=== PATIENT | male | born 1955 | race Caucasian/White ===

== ENCOUNTER → 2018-11-18 | Outpatient (CLI) | payer OTHER ==
--- NOTE | 2018-11-20 14:11 | SLEEP ---
DATE OF STUDY: OBJECTIVE: The patient is a 63-year-old male with an [place] sleep score of 18, who is having a home polysomnogram. Height 69 inches, weight 250 pounds, body mass index 36.9. INTERPRETATION: The apnea-hypopnea index is 13.5 events per hour with a total of 114 events. The minimum oxygen saturation is 70%. The vast majority of the events are obstructive. Mean heart rate of 74.4 beats per minute during sleep. 42.5% of the record shows the patient is snoring. IMPRESSION: Abnormal polysomnogram, home study, showing obstructive sleep apnea and hypopnea. RECOMMENDATIONS: 1. The patient should return to the in-house lab for a CPAP titration study or alternatively could be started on variable CPAP. 2. He should pursue weight loss and avoid sedatives and alcohol. NISHI TIDWELL MD DR: RICK/yeny JOB#: [id number] / [id number] MAURY Story MD, AMAN MD
== END | disposition home or self-care (01) ==
LOC: RT 10:18
PROVIDERS: ATTEND Internal Medicine Critical Care Medicine
DX: G47.33 Obstructive sleep apnea (adult) (pediatric) (principal)
CPT/HCPCS: G0399

== ENCOUNTER → 2019-01-14 | Outpatient (CLI) | payer OTHER ==
--- NOTE | 2019-01-16 11:14 | SLEEP ---
DATE OF STUDY: 01/14/2019 ATTENDING PHYSICIAN: Maury Key MD The patient is a 63-year-old, who weighs 250 pounds with a BMI of 36. The patient's [place] score was 5. The patient had a home sleep study and was found to have LUCI at an AHI of 13.5 per hour with hypoxia. The patient was referred back for in-lab CPAP titration study. 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 When the patient arrived, he had a few mixed alcoholic drinks along with tizanidine and 1 tablet Xanax. The patient was sleepy, but was able to answer questions. He drinks on a nightly basis, 3-5 drinks per night with tizanidine and Xanax. During the night study, the patient spent 409 minutes in bed and slept for 314 minutes with a low sleep efficiency of 77%. Sleep latency was 2 minutes with an absent REM sleep. Overall, sleep architecture showed normal stage 1 sleep, increased stage 2 sleep, absent slow wave and absent REM sleep. EKG monitoring revealed a mean heart rate of 53 beats per minute. No sustained arrhythmias observed. No PLMS seen. The patient was started on CPAP at a pressure of 7 cm water as he was unable to use less than that and titrated to a final pressure of 9 cm water. At the final pressure, the patient slept for 246 minutes. The patient had supine sleep, but no REM sleep. The patient's AHI was reduced to 3 per hour and oxygen saturation remained above 89%. The patient used full face mask. Towards the end of the study, the patient became more responsive and was fully awake. IMPRESSION: 1. Sleep apnea diagnosed by home sleep study. 2. No clinically significant periodic limb movements. 3. Chronic alcoholism. The patient drinks 3-5 drinks per night along with Xanax and tizanidine. He needs to be counseled regarding alcohol cessation. Pt drank prior to arrival to sleep lab. RECOMMENDATIONS: 1. CPAP at 9 cm water completely eliminated the patient's sleep apnea and should be used on a nightly basis. 2. Followup in 4-6 weeks to assess compliance with CPAP and to document clinical improvement. 3. Weight loss is strongly advised. 4. Avoid TELEVISION CABLE INSTALLER depressants. The patient needs to be counseled regarding mixing alcoholic drinks on a nightly basis along with Xanax and tizanidine. 5. Caution regarding driving until his hypersomnia is resolved and symptoms have improved. MIRI NOLASCO MD DR: DOMENICO/yeny JOB#: [id number] / [id number] MAURY Story MDD
== END | disposition home or self-care (01) ==
LOC: RT 19:47
PROVIDERS: ATTEND Internal Medicine Critical Care Medicine
DX: G47.33 Obstructive sleep apnea (adult) (pediatric) (principal)
CPT/HCPCS: 95811

== ENCOUNTER → 2019-10-02 | Outpatient (CLI) | payer MEDICARE ==
[~2019-10-02] MED LIST: ALPR0.5T6 PO; ASPI-630 PO; GABA600T7 PO; IOHEXOL 180 MG/ML 10 ML VIAL. ONE; LISI2.5T PO; METO25TA4 PO; methylPREDNISolone ACETATE 40 MG/ML VIAL. ONE; methylPREDNISolone ACETATE 80 MG/ML VIAL. ONE
--- NOTE | 2019-10-02 12:08 | PAIN ---
DATE OF SERVICE: 10/02/2019 INITIAL CONSULTATION FOR PAIN CLINIC CHIEF COMPLAINT: Low back and bilateral lower extremity pain. HISTORY OF PRESENT ILLNESS: This is a 64-year-old male who presents with history of pain in the low back, bilateral lower extremities for many years; about 10 years plus. The patient reports it is gradually increasing, not a result of any specific injury or action he is aware of, but over the past 1-2 years, the pain has been getting much worse, especially with walking and standing, changing positions, getting up from a seated position and also with sitting for prolonged periods causes some pain in the back itself, but also into the lower extremities, posterior gluteus, posterior thighs into the posterior knees, essentially right equal to left. This is worse with walking, better with sitting or lying down, does not awaken him from sleep generally, and when he is lying down the pain is almost gone. The patient reports no bowel or bladder affect or control loss or incontinence does affect his ability to walk; however, fairly significantly. The patient does not use any assistive devices, although does use a shopping cart when he is at the grocery store to lean on fairly significantly. The patient reports at that time he has done shopping; however, about 30-45 minutes he is using the cart fairly significantly to support his weight because of the pain. The patient reports the pain in the low back is sharp, stabbing, throbbing, shooting in the lower extremities, mostly in the posterior and lateral aspect of the thighs, some in the anterior aspect as well, but mostly in the posterior. The patient rates his disability from 0-10, 10 being the worst, 10 with family and home responsibilities, recreation, social activity and occupation, 5 with sexual behavior, self-care and 1 with life support activities. The patient did have an MRI scan just a few days ago dated 09/24/2019 of lumbar spine showing mild bone marrow edema, left pedicles at L4 and L5 secondary to the stress reaction, likely multilevel degenerative changes of lumbar spine without significant spinal canal or neural foraminal stenosis with mild facet arthropathy at L4-L5 and L5-S1 as well as L3-L4. The patient reports no loss of motor function with the lower extremities, but significant fatigability of both legs with ambulation. The patient reports he has had previous epidural injections in the past about 2018, most recently with good results. Also, has had radiofrequency ablation x 3 with only minimal decrease in pain after the last radiofrequency ablation in the lumbar spine. The patient also had some physical therapies in the past, does exercises on his own, which helps and pool therapy on his own as well with the [facility], which is currently closed, but is doing well before that. The patient is taking ibuprofen, which he reports does help significantly by almost 40-50%. PAST MEDICAL HISTORY: Significant for hypertension, arthritis, atrial fibrillation, nonalcoholic fatty liver change. PAST SURGICAL HISTORY: Previous surgeries include cataract extractions, hip replacement in 2017, appendectomy. CURRENT MEDICATIONS: Include daily baby aspirin, gabapentin, alprazolam, lisinopril, and metoprolol. ALLERGIES: THE PATIENT IS ALLERGIC TO NEOSPORIN. FAMILY HISTORY: Significant for no major medical problems or conditions he is aware of. SOCIAL HISTORY: The patient does not smoke. Drinks alcohol very rarely, maybe once a week at the most. Does not use any illegal, illicit or recreational drugs. Is single, lives locally in [place], [place]. Reports he is currently retired. REVIEW OF SYSTEMS: The patient's review of systems is positive for those items mentioned in history of present illness. All systems reviewed and otherwise negative. It is complete, full and well documented on the patient's chart. PHYSICAL EXAMINATION: VITAL SIGNS: The patient's blood pressure is 115/85, pulse 62, respirations 18, temperature 98.1 degrees Fahrenheit. Height is 5 feet 10 inches. Weight is 261 pounds. GENERAL: The patient is awake, alert, oriented, appropriate, very pleasant demeanor. HEENT: Head shows normocephalic, atraumatic. Extraocular movements are intact and symmetrical. Oral cavity shows mucous membranes are moist and pink. Dentition is intact. NECK: Shows anterior throat supple without palpable lymphadenopathy noted. Swallow reflex symmetrical. CHEST: Shows normal on inspection. Breath sounds are clear to auscultation bilaterally. HEART: Shows S1, S2 clear. No murmurs auscultated. ABDOMEN: Soft, nontender, nondistended. No palpable organomegaly is noted. No rebound or guarding demonstrated. BACK: Shows spine grossly in the midline, normal appearing cervical lordotic curvature, thoracic kyphotic curvature slightly increased and minor flattening of lumbar lordotic curvature. Lumbar paraspinous muscle shows symmetrical on inspection, on palpation shows some moderate tenderness diffusely bilaterally and diffusely in the low lumbar distribution without radiation. The patient has good rotational motion of lumbar spine with some minor tenderness with right and left lateral rotation, but only very minimal and some mild tenderness as well with extension of the lumbar spine and axial loading of the low back, but only minimal as well. Forward flexion reports no pain with full 45 degrees flexion anteriorly. EXTREMITIES: The patient's lower extremities showed deep tendon reflexes at 2+ in the patellar, 1+ tendo-calcaneus tendons. Motor exam is strong with 5/5 dorsiflexion, extension, quadriceps and hamstring flexion symmetrical. Peripheral pulses are 1+ posterior tibia. No peripheral edema is noted bilaterally. Straight leg raising noted to be negative for reproduction of radicular symptoms bilaterally as is Gaenslen's and Diego's maneuvers bilaterally. The patient is able to walk, stand on toes without difficulty or loss of balance with a normal appearing gait, does not appear to favor the right or left lower extremity for short distance in the office today, again not using any assistive devices. SKIN: The patient's skin shows warm and dry, good turgor. No edema. No sores, rashes or bruising throughout. IMPRESSION: 1. This is a 64-year-old male with a long history of low back pain, bilateral lower extremity pain of 10 plus years, worse over the past 1-2 years. 2. MRI scan of lumbar spine as noted. 3. Arthritis. 4. Hypertension. 5. Atrial fibrillation. PLAN: Options were discussed with the patient including conservative medical management, physical therapies, and interventional techniques. He would like to pursue interventional techniques. We discussed a lumbar epidural steroid injection using description as well as anatomical models to describe the procedure. Risks were then discussed including, but not limited to bleeding, infection, possibility of epidural hematoma, subsequent neurological compromise, dural puncture, headaches, spinal cord and/or nerve damage, side effects of steroid medication and poor results regarding pain control. The patient understands and wished to proceed. The patient will return to clinic in approximately 2 weeks for followup. He was counseled on his return appointment, activity level and side effects to be aware of. DIAGNOSES: Lumbar radiculopathy with lumbar degenerative disk disease and lumbar spondylosis. PROCEDURE: Lumbar epidural steroid injection with translaminar approach L4-L5 level using C-arm fluoroscopic guidance under sterile prep and ape using local anesthetic. MEDICATIONS INJECTED: A total of 120 mg Depo-Medrol plus 10 mL of preservative-free normal saline and 2 mL of contrast. CONDITION AT DISCHARGE: Stable. The patient tolerated the procedure well and had no complications. RUCHI LOYOLA MD DR: FRANCISCO/yeny JOB#: [id number] / [id number] Vitaliy Gross MD
== END ==
LOC: PNCL 10:10
PROVIDERS: ATTEND Anesthesiology
DX: M51.16 Intervertebral disc disorders with radiculopathy, lumbar region (principal); M47.816 Spondylosis without myelopathy or radiculopathy, lumbar region; I10 Essential (primary) hypertension; I48.91 Unspecified atrial fibrillation; Z87.39 Personal history of other diseases of the musculoskeletal system and connective tissue; Z98.42 Cataract extraction status, left eye; Z98.41 Cataract extraction status, right eye; Z96.60 Presence of unspecified orthopedic joint implant; Z88.8 Allergy status to other drugs, medicaments and biological substances; Z72.89 Other problems related to lifestyle; Z96.1 Presence of intraocular lens
CPT/HCPCS: 62323; J1030; J1040; Q9965

== ENCOUNTER → 2019-10-16 | Outpatient (CLI) | payer MEDICARE ==
--- NOTE | 2019-10-16 13:08 | PAIN ---
DATE OF SERVICE: 10/16/2019 PROGRESS NOTE FOR PAIN CLINIC DIAGNOSES: Lumbar radiculopathy with lumbar degenerative disk disease and lumbar spondylosis. HISTORY OF PRESENT ILLNESS: The patient is a 64-year-old male, who returns for followup status post lumbar epidural steroid injection x 1. The patient reports about 75% improvement overall in the low back and bilateral lower extremity pain that he is having. The patient reports being increasing in activity with greater ease and comfort, traveling with greater ease, walking greater distances and is very pleased with his progress. He states he has been able to stand for much longer periods of time. The patient reports he is sleeping well at night, does not awaken him from sleep, sleeping about 8 hours at a time. The patient reports still some pain in the low back into the bilateral hips, posterior gluteus, lateral thigh, anterior thigh, but only very mildly at this time. The patient reports it is a 6 on a scale of 10 at its worst over the past week, 3 on average, 1 at its least and is a 6 today. The patient reports it is worse with walking, standing, and changing positions, better again with lying down or sitting. PHYSICAL EXAMINATION: VITAL SIGNS: The patient's blood pressure 123/78, pulse 70, respirations 18, temperature 97.8 degrees Fahrenheit, height is 5 feet 10 inches and weight is 267 pounds. GENERAL: The patient is awake, alert, oriented, appropriate, very pleasant demeanor. HEENT: Shows normocephalic, atraumatic. Extraocular movements are intact and symmetrical. Oral cavity: Mucous membranes moist and pink. Dentition is intact. NECK: Shows anterior throat supple without palpable lymphadenopathy noted. Swallow reflex symmetrical. CHEST: Shows normal on inspection. Breath sounds are clear bilaterally. HEART: Shows S1, S2 clear. No murmurs auscultated. ABDOMEN: Soft, nontender, nondistended. BACK: Shows spine grossly in the midline. Normal-appearing thoracic kyphosis and slightly flattened lumbar lordotic curvature. Lumbar paraspinous muscle shows symmetrical with inspection, with palpation shows some mild tenderness diffusely in the low lumbar distribution, but only diffusely without radiation. The patient has good rotational motion of lumbar spine, both laterally as well as extension and flexion without difficulty. No tenderness over the spinous processes, sacrum or sacroiliac regions bilaterally. EXTREMITIES: Lower extremities show deep tendon reflexes 2+ in the patellar and tendo-calcaneus tendons. Motor exam is strong with 5/5 dorsiflexion, extension, quadriceps and hamstring flexion symmetrical. Peripheral pulses are 1+ posterior tibial. Options were discussed with the patient. The patient's old chart was reviewed as his current medication regimen updated. Current review of systems updated today as well and we will proceed with a second in a series of lumbar epidural steroid injection today with fluoroscopic guidance. Risks were again discussed, including but not limited to bleeding, infection, possibility of epidural hematoma, subsequent neurological compromise, dural puncture, headaches, spinal cord and/or nerve damage, side effects of steroid medication and poor results regarding pain control. The patient understands and wished to proceed. The patient will return to the clinic in approximately 2 weeks for followup, was counseled on return appointment, activity level and side effects to be aware of. DIAGNOSES: Lumbar radiculopathy with lumbar degenerative disk disease and lumbar spondylosis. PROCEDURE: Lumbar epidural steroid injection, translaminar approach at L4-L5 level using C-arm fluoroscopic guidance under sterile prep and drape using local anesthetic. MEDICATION INJECTED: A total of 120 mg Depo-Medrol plus 10 mL of preservative-free normal saline and 2 mL of contrast. CONDITION AT DISCHARGE: Stable. The patient tolerated procedure well, had no complications. RUCHI LOYOLA MD DR: FRANCISCO/yeny JOB#: [id number] / [id number]
== END | disposition home or self-care (01) ==
LOC: PNCL 11:51
PROVIDERS: ATTEND Anesthesiology
DX: M51.16 Intervertebral disc disorders with radiculopathy, lumbar region (principal); M47.26 Other spondylosis with radiculopathy, lumbar region; Z98.890 Other specified postprocedural states; Z88.1 Allergy status to other antibiotic agents; Z88.8 Allergy status to other drugs, medicaments and biological substances
CPT/HCPCS: 62323; J1030; J1040; Q9965

== ENCOUNTER → 2020-05-10 | Outpatient (CLI) | payer MEDICARE ==
[~2020-05-10] MED LIST changes: +BUPIVACAINE MPF 0.25% 10 ML VIAL. ONE
--- NOTE | 2020-05-10 11:34 | PDOC ---
Progress Note - Pain Clinic Date of Service: DOS: DATE: 05/10/20 TIME: 11:31 Diagnosis: Dx: Lumbar degenerative disc disease with lumbar and lumbosacral spondylosis History or Present Illness: HPI: 64-year-old male returns follow-up status [facility] Reports that 80% improvement for the first 8 days or so but the pain radiated returned fairly significantly and is now more in the low back and in the lower extremities. Patient reports the pain is altered to some degree it is mainly in the low back worse with walking and standing a greater than about 15 to 20 minutes he has to sit down because the pain is unbearable. Patient reports the pain is in the low back bilaterally right essentially equal to left without specific radiation to lower extremities at this time. Patient reports his legs are doing much better after the last injection but the pain in the back is most noticeable. Patient scribes it aching and sharp constant severe unbearable with walking better with sitting or laying down. Patient reports generally is not awakening from sleep at night patient rates the pain as a 10 on scale 10 is worse over the past week 5 on average for this least is a 5 today. Patient reports no new motor or sensory deficits no new bowel or bladder incon tinence or other complaints. Physical Exam: VS: Pressure is 156/99 pulse 91 respirations 18 temperature is 90.4 F height is 5 feet 10 inches weight is 271 pounds PE: PHYSICAL EXAMINATION: GENERAL: The patient is awake, alert, oriented, appropriate, very pleasant demeanor HEENT: Shows normocephalic, atraumatic. Extraocular movements are intact and symmetrical. Oral cavity: Mucous membranes moist and pink. Dentition is intact. NECK: Shows anterior throat supple without palpable lymphadenopathy noted. Swallow reflex symmetrical. CHEST: Shows normal on inspection. Breath sounds are clear bilaterally, distant but no rales rhonchi or wheezes auscultated. HEART: Shows S1, S2 clear. No murmurs auscultated. ABDOMEN: Soft, nontender, nondistended, obese. No palpable organomegaly is noted. No rebound or guarding demonstrated. BACK: Shows spine grossly in the midline. Normal-appearing cervical lordotic curvature. There is slightly increased thoracic kyphosis, some minor flattening of the lumbar lordotic curvature. Lumbar paraspinous muscles show symmetrical on inspection, on palpation shows some moderate tenderness diffusely throughout the upper, middle and lower distribution of the paraspinous muscles, but without specific trigger points, without radiation of pain. The patient has good rotational motion of the lumbar spine, with some moderate pain reported with extension and axial loading of the lumbar spine bilaterally better with forward flexion 45 degrees right and left lateral rotation greater than 10 degrees causes some moderate pain bilaterally as well but again without radiation. No tenderness over the spinous processes, sacrum or sacroiliac regions. EXTREMITIES: Lower extremities show deep tendon reflexes 2+ in the patellar and tendo calcaneus tendons. Motor exam is 5 on a scale of 5 with right dorsiflexion, extension, quadriceps and hamstring flexion and 5/5 on the left. Peripheral pulses are 1+ posterior tibial. No peripheral edema is noted bilaterally. Lower extremities are warm and dry to touch, equal in color and appearance. SKIN: Shows warm and dry, good turgor. No edema. No sores, rashes or bruising throughout. Procedure: Procedure: Options were discussed with the patient. Patient's old chart was reviewed his current medication regimen updated current review of systems updated today as well. We will proceed with bilateral L4-5 and L5-S1 facet joint injections today with fluoroscopic guidance. Risks were discussed including but not limited to: Bleeding, infection, possibility of epidural hematoma and subsequent neurological compromise, dural puncture, headaches, spinal cord and/or nerve damage, side effects of steroid medication, and poor results regarding pain control. Patient understands wished to proceed. Patient will return to clinic in approximate 2 weeks for follow-up, was counseled as to return appointment activity level and side effects to be aware of. Medication Injected: Med Injected: Under sterile prep and drape using C-arm fluoroscopic guidance AP and lateral and oblique views, bilateral L4-5 and L5-S1 facet joint injections were performed, medications injected: 120 mg Depo-Medrol +4 cc 0.25% bupivacaine +2 cc contrast. Condition at discharge stable patient tolerated the procedure well and no complications. Condition at Discharge: Condition at Discharge: Condition at discharge is stable, patient tolerated procedure well and had no complications. RUCHI LOYOLA MD May 10, 2020 11:34
== END | disposition home or self-care (01) ==
LOC: PNCL 10:09
PROVIDERS: ATTEND Anesthesiology
DX: M51.36 Other intervertebral disc degeneration, lumbar region (principal); M47.817 Spondylosis without myelopathy or radiculopathy, lumbosacral region; Z79.82 Long term (current) use of aspirin; Z79.899 Other long term (current) drug therapy; Z88.8 Allergy status to other drugs, medicaments and biological substances
CPT/HCPCS: 64493; 64494; J1030; J1040; J3490; Q9965; 64635; 64636

== ENCOUNTER → 2020-06-14 | Outpatient (CLI) | payer MEDICARE ==
[~2020-06-14] MED LIST changes: -BUPIVACAINE MPF 0.25% 10 ML VIAL. ONE; -IOHEXOL 180 MG/ML 10 ML VIAL. ONE; -methylPREDNISolone ACETATE 40 MG/ML VIAL. ONE; -methylPREDNISolone ACETATE 80 MG/ML VIAL. ONE
--- NOTE | 2020-06-14 16:05 | KCIC ---
EXAM: Chest, 2 views. HISTORY: Shortness of breath. COMPARISON: None. FINDINGS: 2 views of the chest are obtained. There is no infiltrate, pleural effusion or pneumothorax . There is a cardiac event monitor overlying the left chest wall. There is a left atrial appendage cl ip. IMPRESSION: No acute pulmonary finding. Electronically signed by: Alyson Valerio MD (06/14/2020 4:03 PM) [id number]
== END ==
LOC: KCIC 14:37
PROVIDERS: ATTEND Family Medicine
DX: R06.02 Shortness of breath (principal)
CPT/HCPCS: 71046

== ENCOUNTER → 2020-07-09 | Outpatient (CLI) | payer MEDICARE ==
--- NOTE | 2020-07-10 08:10 | KCIC ---
Sacrococcyx 3 views: Reason for examination: Sacral pain. Hurts to walk. Right total hip prosthesis is in place. Proximal left femur is intact. Left hip joint is maintained. No acute bony abnormality seen at the pelvis. The sacrum shows normal alignment and no acute fracture s seen. There is however anterolisthesis of the fifth sacral vertebra on the first coccygeal vertebra l body. Chronicity is unknown. There also appears to be spina bifida in the fourth and fifth sacral v ertebral bodies. IMPRESSION: Anterolisthesis of the fifth sacral vertebral body on the first coccygeal vertebral body. Chronicity is unknown. Electronically signed by: Rosemary Galindo MD (07/10/2020 8:07 AM) GRETCHEN
== END ==
LOC: KCIC 15:02
PROVIDERS: ATTEND Family Medicine
DX: M43.18 Spondylolisthesis, sacral and sacrococcygeal region (principal)
CPT/HCPCS: 72220

== ENCOUNTER → 2020-08-16 | Outpatient (CLI) | payer MEDICARE ==
--- NOTE | 2020-08-16 16:47 | KCIC ---
EXAM: Skull, 4 views. HISTORY: Fall. COMPARISON: None. FINDINGS: 4 views of the skull are obtained. No fracture is seen. There is no paranasal sinus opacifi cation or air-fluid level. There is mild leftward nasal septal deviation. There is degenerative buckley e involving visualized cervical spine, not formally assessed on this exam. IMPRESSION: No acute osseous finding. Electronically signed by: Alyson Valerio MD (08/16/2020 4:44 PM) [id number]
== END ==
LOC: KCIC 15:44
PROVIDERS: ATTEND Family Medicine
DX: S00.83XA Contusion of other part of head, initial encounter (principal); G47.30 Sleep apnea, unspecified; W19.XXXA Unspecified fall, initial encounter; Y93.89 Activity, other specified; Y92.89 Other specified places as the place of occurrence of the external cause; Y99.8 Other external cause status
CPT/HCPCS: 70260

== ENCOUNTER → 2020-11-18 | Outpatient (CLI) | payer MEDICARE ==
--- NOTE | 2020-11-18 12:02 | KCIC ---
EXAM: Lumbar spine MRI without contrast. HISTORY: Neurogenic claudication. TECHNIQUE: Multiplanar, multisequence magnetic resonance imaging of the lumbar spine was performed wi thout contrast. COMPARISON: None. FINDINGS: There is mild lumbar scoliosis and hyperlordosis. There is grade 1 anterolisthesis of L4 an d L5, measuring 3 mm. There is grade 1 anterolisthesis of L5 on S1, measuring 5 mm. There is 3 mm ret rolisthesis of L2 on L3 and L3 on L4. There is multilevel endplate remodeling. There is disc space na rrowing predominantly at L3-L4. There are several osseous hemangiomas. There are few endplate Schmorl 's nodes. There is no fracture or suspicious osseous lesion. The conus terminates at L1. At L1-L2, there is no stenosis. At L2-L3, there is a diffuse disc bulge and endplate osteophytosis. There is mild left facet arthropa thy. There is prominent dorsal epidural fat. There is mild central canal stenosis. At L3-L4, there is a posterior central disc protrusion superimposed on a disc bulge and endplate oste ophytosis. There is mild left greater than right facet arthropathy. There is prominent dorsal epidura l fat. There is mild central canal stenosis. At L4-5, there is a disc bulge and endplate remodeling. There is severe bilateral facet arthropathy. There is grade 1 anterolisthesis. There is mild central canal stenosis. At L5-S1, there is a disc bulge and endplate osteophytosis. There is severe right and mild left facet arthropathy. There is grade 1 anterolisthesis. There is mild bilateral foraminal stenosis. There are left hemilaminectomy changes. IMPRESSION: 1. Multilevel degenerative change involving the lumbar spine, described in detail above. The comminut ion of this finding and prominent epidural fat contributing to mild central canal stenosis at the afo rementioned levels and mild bilateral foraminal stenosis at L5-S1. 2. Left hemilaminectomy changes at L5-S1. 3. Mild scoliosis, hyperlordosis and slight listhesis at the aforementioned levels. Electronically signed by: Alyson Valerio MD (11/18/2020 12:00 PM) [id number]
== END ==
LOC: KCIC MRI 11:00
PROVIDERS: ATTEND Family Medicine
DX: M47.817 Spondylosis without myelopathy or radiculopathy, lumbosacral region (principal); M48.062 Spinal stenosis, lumbar region with neurogenic claudication; M25.78 Osteophyte, vertebrae
CPT/HCPCS: 72148

== ENCOUNTER → 2020-12-15 | Outpatient (CLI) | payer MEDICARE ==
--- NOTE | 2020-12-16 09:14 | RAD ---
US DPLX ARTR EXTREM LOWER BILAT Indication: Reason: CLAUDICATION BILATERAL LOWER EXTREMITIES / Spl. Instructions: / History: Comparison: None. Procedure: Real-time grayscale, color flow Doppler, and Doppler spectral waveform analysis of the art erial system of the lower extremity is performed. Findings: Right lower extremity: Triphasic or biphasic waveforms within the right common femoral, deep femoral, superficial femoral, popliteal and anterior tibial arteries. Monophasic waveform within the posterio r tibial artery. Peroneal artery not identified. Monophasic waveform within the dorsalis pedis artery . Mild atheromatous plaque. No significant velocity elevation. Left lower extremity: Triphasic or biphasic waveforms within the left common femoral, deep femoral, s uperficial femoral, and popliteal arteries. Monophasic waveform within the posterior tibial, anterior tibial and dorsalis pedis arteries. Peroneal artery not identified. Mild atheromatous plaque. No sig nificant velocity elevation. IMPRESSION: 1. Monophasic waveforms within the distal lower extremity, may indicate proximal stenosis. CT angiog italia can further assess as clinically warranted. 2. Mild atheromatous plaque. 3. Bilateral peroneal arteries not identified, may relate to slow flow or occlusion. Electronically signed by: Jonathan Isaac DO (12/16/2020 9:12 AM) [id number]
== END ==
LOC: US 15:57
PROVIDERS: ATTEND Family Medicine
DX: I70.203 Unspecified atherosclerosis of native arteries of extremities, bilateral legs (principal)
CPT/HCPCS: 93925

== ENCOUNTER 2020-12-23 08:15 | Outpatient (CLI) | payer MEDICARE ==
[2020-12-23] VITALS (12 sets, daily range): BP systolic 125–159; BP diastolic 81–94
[~2020-12-23] VITALS: Ht 177.8 cm; Wt 113.6 kg
[2020-12-23] MEDS ORDERED: DOXY-181 PO (08:46)
[2020-12-23] MEDS ORDERED: GABA600T7 PO (08:46)
[2020-12-23] MEDS ORDERED: ESOM40CA PO (08:46)
[2020-12-23] MEDS ORDERED: TRAM50TA PO (08:46)
[2020-12-23] MEDS ORDERED: HYDR25TA PO (08:46)
[2020-12-23] MEDS ORDERED: LISI10TA16 PO (08:46)
[2020-12-23] MEDS ORDERED: METO-247 PO (08:46)
[2020-12-23] MEDS ORDERED: fentaNYL PF VIAL 100 MCG/2 ML VIAL ONE (08:56)
[2020-12-23] MEDS ORDERED: LIDOCAINE WITH 8.4% SOD BICARB 3 ML DISP.SYRIN. ONE (08:56)
[2020-12-23] MEDS ORDERED: MIDAZOLAM HCL/PF 2 MG/2 ML VIAL. ONE (08:56)
[2020-12-23] MEDS ORDERED: IODIXANOL 320 MG/ML 100 ML VIAL. ONE (08:57)
[2020-12-23] MEDS ORDERED: HEPARIN for ARTERIAL LINE 1,500 ML ONE (08:57)
[2020-12-23] MEDS ORDERED: HEPARIN for IV BOLUS 10,000 UNIT/10 ML VIAL. ONE (08:57)
[2020-12-23] MEDS ORDERED: fentaNYL PF VIAL 100 MCG/2 ML VIAL IV ONE (09:00)
[2020-12-23] MEDS ORDERED: MIDAZOLAM HCL/PF 2 MG/2 ML VIAL. IV ONE (09:00)
[2020-12-23] MEDS ORDERED: LIDOCAINE WITH 8.4% SOD BICARB 3 ML DISP.SYRIN. IJ ONE (09:00)
[2020-12-23] MEDS ORDERED: IODIXANOL 320 MG/ML 100 ML VIAL. IART ONE (09:00)
[2020-12-23 09:11] LABS: BASO % 0 % (0-3); EOS # 0.4 x10^3/uL (0.0-0.7); EOS % 5 % (0-3); HEMATOCRIT 43.1 % (39.0-53.0); HEMOGLOBIN 14.5 g/dL (13.0-17.5); LYMPH # 1.5 x10^3/uL (1.0-4.8); LYMPH % 21 % (24-48); MEAN CORPUSCULAR HEMOGLOBIN 33 pg (25-35); MEAN CORPUSCULAR HGB CONC 34 g/dL (31-37); MEAN CORPUSCULAR VOLUME 97 fL (79-100); MONO # 0.9 x10^3/uL (0.0-1.1); MONO % 12 % (0-9); NEUT # 4.3 x10^3/uL (1.8-7.7); NEUT % 61 % (31-73); PLATELET COUNT 266 x10^3/uL (140-400); RED BLOOD COUNT 4.46 x10^6/uL (4.30-5.70); RED CELL DISTRIBUTION WIDTH 14.3 % (11.5-14.5)
[2020-12-23] MEDS ORDERED: CONTRAST GIVEN. MC PRN (09:15)
[2020-12-23 09:19] LABS: PROTHROMBIN TIME PATIENT 13.2 SEC (11.7-14.0)
[2020-12-23 09:25] LABS: CALCIUM 8.8 mg/dL (8.5-10.1); CREATININE 1.2 mg/dL (0.7-1.3); GFR 60.6; POTASSIUM 3.7 mmol/L (3.5-5.1)
--- NOTE | 2020-12-23 10:50 | PDOC ---
Exam [employer] Jamila Pre-Procedure Diagnosis Pre-Procedure Diagnosis BLE pain. Possibe claudication. Post-Procedure Diagnosis Post-Procedure Diagnosis Essentially normal BLE arteries Procedure Performed Procedure Performed BLE angiogram Type of Anesthesia Type of Anesthesia Mod Sed Estimated Blood Loss EBL: 5cc Specimens Specimans None Drain/Tubes Drains/Tubes None Condition of Patient Condition of Patient Stable. Disposition Disposition [facility] EXPECT DC FAHAD ENGEL MD Dec 23, 2020 10:50
--- NOTE | 2020-12-23 11:35 | NUR ---
HOB elevated 30 degree after 1 hour of lying flat. Right groin soft, without s/s of bleeding. Pulses palpable.
--- NOTE | 2020-12-23 12:52 | RAD ---
12/23/2020 Bilateral lower extremity angiography Indication: Bilateral lower extremity pain. Abnormal duplex ultrasound December 15, 2020. Probable multifa ctorial pain, with possible component of claudication or ischemic pain. Consent: The procedure was explained in its entirety to the patient or the patients designated repres entative by a member of the treatment team, including a discussion of the risks, benefits and commonl y accepted alternatives to the procedure, as well as the expected consequences of no therapy whatsoev er. Discussion of the risks included, but was not limited to, those that are most frequent and thos e that are rare but possibly severe or life-threatening, as well as the possibility of unforeseen com plications. The patient was brought to the fluoroscopy suite and placed in the supine position. A timeout procedu re was performed. The right groin was prepped and draped using maximum sterile technique, including t he use of: Current guideline approved cutaneous antisepsis, a large sterile sheet to establish a ster ile field. Additionally the portable router operator wore a hat, mask, sterile gloves, a sterile gown during the proc edure as well as practiced acceptable hand hygiene prior to placing the line. Lidocaine was used for local anesthesia. Ultrasound evaluation demonstrates the right common femoral artery be patent. The artery was accessed under direct ultrasound guidance using micropuncture technique. Reference ultrasound images were trae ed medical record. The catheter was advanced into the abdominal aorta. Abdominal aortogram was obtained which is normal. The catheter was repositioned in the inferior abdominal aorta and a pelvic angiogram was obtained wh ich was normal. The catheter was positioned in the left external iliac artery and angiogram obtained demonstrating a patent common femoral artery, profunda artery, proximal SFA. Catheter was repositioned in the left SFA and left lower extremity angiography continued demonstratin g a patent/normal superficial femoral artery, popliteal artery, posterior tibial artery, peroneal art jake, and anterior tibial artery. The lateral plantar and dorsalis pedis artery are patent. Angiography through the right common femoral sheath was then performed demonstrating a patent right c ommon femoral artery. A puncture site noted in the mid common femoral artery. The right profunda milton ry is patent. The right SFA and popliteal arteries are patent. There is three-vessel runoff to the ri ght foot. A minx device was deployed is the sheath was removed. Additional manual pressure was held. Sterile dr essings were applied. No immediate complications were identified. Total fluoroscopy time:7 min Dose area product:304 gycm2 Sedation: The procedure was performed under conscious sedation including continuous cardiopulmonary m onitoring via a dedicated sedation nurse. Cqmx-is-deen sedation time:55 min IMPRESSION: Normal abdominal aortogram, pelvic angiogram, and bilateral lower extremity angiograms Electronically signed by: Sj Marino MD (12/23/2020 12:50 PM) [id number]
--- NOTE | 2020-12-23 13:59 | NUR ---
Discharge Note: KENRICK ROBERTS Discharge instructions and discharge home medications reviewed with Patient and a copy given. All questions have been answered and understanding verbalized. The following instructions and handouts were given: Groin site care and moderate sedation. Discontinued lines and drains: Left hand IV site dc'd and tip intact. Patient discharged to home with friend via personal vehicle.
== END 2020-12-23 14:04 | disposition home or self-care (01) ==
LOC: INTRAD 08:15
PROVIDERS: ATTEND Family Medicine
DX: I73.9 Peripheral vascular disease, unspecified (principal); I10 Essential (primary) hypertension; I48.91 Unspecified atrial fibrillation; G47.30 Sleep apnea, unspecified; K21.9 Gastro-esophageal reflux disease without esophagitis; M19.90 Unspecified osteoarthritis, unspecified site; Z87.891 Personal history of nicotine dependence; Z79.82 Long term (current) use of aspirin; Z79.899 Other long term (current) drug therapy; Z98.890 Other specified postprocedural states; Z88.8 Allergy status to other drugs, medicaments and biological substances
CPT/HCPCS: 36247; 36415; 75625; 75716; 76937; 80048; 85025; 85610; 99152; 99153; C1760; C1769; C1892; C1894; J1644; J2250; J3010; J3490; Q9967; G0269

== ENCOUNTER → 2021-01-31 | Outpatient (CLI) | payer MEDICARE ==
[2020-12-23 09:05] VITALS: BP 125/81
[~2021-01-31] MED LIST changes: +CONTRAST GIVEN. MC PRN; +DOXY-181 PO; +ESOM40CA PO; +HYDR25TA PO; +IOHEXOL 180 MG/ML 10 ML VIAL. EPID ONE; +LIDOCAINE WITH 8.4% SOD BICARB 3 ML DISP.SYRIN. INJ ONE; +LIDOCAINE WITH 8.4% SOD BICARB 3 ML DISP.SYRIN. ONE; +LISI10TA16 PO; -LISI2.5T PO; +LISI2.5T12 PO; +METO-247 PO; +TRAM50TA PO
--- NOTE | 2021-01-31 10:48 | RAD ---
EXAM: Fluoroscopic guided lumbar puncture for CT myelography; lumbar spine CT myelogram. HISTORY: Back pain and knee pain. TECHNIQUE: The risks of the procedure discussed with the patient and written and verbal consent was o btained. A timeout was performed. The patient was placed in a prone position on the fluoroscopy table and a site overlying L5-S1 was selected for needle entry. The skin overlying this region was sterile ly prepped, draped and infiltrated with 1 percent lidocaine. A 22-gauge needle was advanced into the thecal sac and appropriate needle tip position was confirmed with spontaneous yield of cerebral spina l fluid within the needle hub. 15 cc of Omnipaque 180 intrathecal contrast was then injected into the thecal sac. The needle was removed and a sterile bandage was placed at the needle entry site. Prone crosstable lateral, upright lateral neutral and flexion and extension fluoroscopic images were obtain ed. The patient was then transferred to the CT suite for the post injection CT portion of the exam. 4 fluoroscopic images were obtained for a total fluoroscopy time of 60 seconds. The patient tolerated the procedure without difficulty and was discharged one hour following the procedure in stable condit ion. *One or more of the following individualized dose reduction techniques were utilized for this examina tion: 1. Automated exposure control. 2. Adjustment of the mA and/or kV according to patient size. 3. Use of iterative reconstruction technique. COMPARISON: MRI dated 11/18/2020. FINDINGS: There are 5 nonrib-bearing lumbar segments. There is minimal scoliosis. There is 4 mm grade 1 anterolisthesis of L5 on S1, 2 mm grade 1 anterolisthesis of L4 on L5 and 2 mm retrolisthesis of L 3 on L4 in upright and supine positions. There is no abnormal motion between flexion and extension. T here is degenerative endplate remodeling at all levels. There is mild disc space narrowing at L3-L4. There is no fracture or suspicious osseous lesion. The conus terminates at L1. There is sigmoid diver ticulosis, partially included on the jhhob-og-adio. There is degenerative subchondral sclerosis, spur ring and vacuum phenomenon involving the sacroiliac joints. There is mildly prominent dorsal epidural fat. At T12-L1, there is minimal endplate remodeling. There is mild right facet arthropathy. There is no s tenosis. At L1-L2, there is minimal endplate remodeling. There is an incidental nonunited lateral right L2 tra nsverse process. There is no stenosis. At L2-L3, there is a mild disc bulge and endplate remodeling. There is minimal retrolisthesis. There is an incidental nonunited right L3 transverse process. There is minimal right foraminal stenosis. Th ere is minimal central canal stenosis. At L3-L4, there is a mild to moderate disc bulge and endplate osteophytosis. There is mild retrolisth esis. There is mild left facet arthropathy. There is an incidental nonunited right L4 transverse proc ess. There is minimal central canal stenosis. At L4-L5, there is a moderate disc bulge and endplate remodeling. There is severe bilateral facet art hropathy. There is grade 1 anterolisthesis. There is no stenosis. At L5-S1, there is a mild disc bulge and endplate osteophytosis. There is severe right and mild left facet arthropathy. There is grade 1 anterolisthesis. There is mild bilateral foraminal stenosis. IMPRESSION: 1. Multilevel degenerative change involving the lumbar spine, described in detail above. This is asso ciated with minimal right foraminal and central canal stenosis at L2-L3, minimal central canal stenos is at L3-L4, and mild bilateral foraminal stenosis at L5-S1. 2. Minimal multilevel listhesis, described above. There is no convincing abnormal motion between flex ion and extension. 3. Slightly prominent dorsal epidural fat at the lumbar levels. Electronically signed by: Alyson Valerio MD (01/31/2021 10:46 AM) [id number]
--- NOTE | 2021-01-31 10:54 | RAD ---
EXAM: Fluoroscopic guided lumbar puncture for CT myelography; lumbar spine CT myelogram. HISTORY: Back pain and knee pain. TECHNIQUE: The risks of the procedure discussed with the patient and written and verbal consent was o btained. A timeout was performed. The patient was placed in a prone position on the fluoroscopy table and a site overlying L5-S1 was selected for needle entry. The skin overlying this region was sterile ly prepped, draped and infiltrated with 1 percent lidocaine. A 22-gauge needle was advanced into the thecal sac and appropriate needle tip position was confirmed with spontaneous yield of cerebral spina l fluid within the needle hub. 15 cc of Omnipaque 180 intrathecal contrast was then injected into the thecal sac. The needle was removed and a sterile bandage was placed at the needle entry site. Prone crosstable lateral, upright lateral neutral and flexion and extension fluoroscopic images were obtain ed. The patient was then transferred to the CT suite for the post injection CT portion of the exam. 4 fluoroscopic images were obtained for a total fluoroscopy time of 60 seconds. The patient tolerated the procedure without difficulty and was discharged one hour following the procedure in stable condit ion. *One or more of the following individualized dose reduction techniques were utilized for this examina tion: 1. Automated exposure control. 2. Adjustment of the mA and/or kV according to patient size. 3. Use of iterative reconstruction technique. COMPARISON: MRI dated 11/18/2020. FINDINGS: There are 5 nonrib-bearing lumbar segments. There is 4 mm grade 1 anterolisthesis of L5 on S1, 2 mm grade 1 anterolisthesis of L4 on L5 and 2 mm retrolisthesis of L3 on L4 in upright and supin e positions. There is no abnormal motion between flexion and extension. There is degenerative endplat e remodeling at all levels. There is mild disc space narrowing at L3-L4. There is no fracture or susp icious osseous lesion. The conus terminates at L1. There is sigmoid diverticulosis, partially include d on the [id number]. There is degenerative subchondral sclerosis, spurring and vacuum phenomenon i nvolving the sacroiliac joints. There is mildly prominent dorsal epidural fat. At T12-L1, there is minimal endplate remodeling. There is mild right facet arthropathy. There is no s tenosis. At L1-L2, there is minimal endplate remodeling. There is an incidental nonunited lateral right L2 tra nsverse process. There is no stenosis. At L2-L3, there is a mild disc bulge and endplate remodeling. There is minimal retrolisthesis. There is an incidental nonunited right L3 transverse process. There is minimal right foraminal stenosis. Th ere is minimal central canal stenosis. At L3-L4, there is a mild to moderate disc bulge and endplate osteophytosis. There is mild retrolisth esis. There is mild left facet arthropathy. There is an incidental nonunited right L4 transverse proc ess. There is minimal central canal stenosis. At L4-L5, there is a moderate disc bulge and endplate remodeling. There is severe bilateral facet art hropathy. There is grade 1 anterolisthesis. There is no stenosis. At L5-S1, there is a mild disc bulge and endplate osteophytosis. There is severe right and mild left facet arthropathy. There is grade 1 anterolisthesis. There is mild bilateral foraminal stenosis. IMPRESSION: 1. Multilevel degenerative change involving the lumbar spine, described in detail above. This is asso ciated with minimal right foraminal and central canal stenosis at L2-L3, minimal central canal stenos is at L3-L4, and mild bilateral foraminal stenosis at L5-S1. 2. Minimal multilevel listhesis, described above. There is no convincing abnormal motion between flex ion and extension. 3. Slightly prominent dorsal epidural fat at the lumbar levels. Electronically signed by: Alyson Valerio MD (01/31/2021 10:52 AM) [id number]
== END | disposition home or self-care (01) ==
LOC: RAD 10:13
PROVIDERS: ATTEND Neurological Surgery
DX: M48.061 Spinal stenosis, lumbar region without neurogenic claudication (principal); I10 Essential (primary) hypertension; I48.91 Unspecified atrial fibrillation; M19.90 Unspecified osteoarthritis, unspecified site; G47.30 Sleep apnea, unspecified; K21.9 Gastro-esophageal reflux disease without esophagitis; Z79.82 Long term (current) use of aspirin; Z79.899 Other long term (current) drug therapy; Z98.890 Other specified postprocedural states; Z88.8 Allergy status to other drugs, medicaments and biological substances
CPT/HCPCS: 62304; 72132; J3490; Q9965

== ENCOUNTER → 2021-02-17 | Outpatient (CLI) | payer MEDICARE ==
[2020-12-23 09:05] VITALS: BP 125/81
[~2021-02-17] MED LIST changes: +BUPIVACAINE MPF 0.25% 10 ML VIAL. ONE; -CONTRAST GIVEN. MC PRN; -IOHEXOL 180 MG/ML 10 ML VIAL. EPID ONE; +IOHEXOL 180 MG/ML 10 ML VIAL. ONE; -LIDOCAINE WITH 8.4% SOD BICARB 3 ML DISP.SYRIN. INJ ONE; -LIDOCAINE WITH 8.4% SOD BICARB 3 ML DISP.SYRIN. ONE; +methylPREDNISolone ACETATE 80 MG/ML VIAL. ONE
--- NOTE | 2021-02-17 14:09 | PDOC ---
Progress Note - Pain Clinic Date of Service: DOS: DATE: 02/17/21 TIME: 14:05 Diagnosis: Dx: Lumbar radiculopathy with lumbar degenerative disease and lumbar and lumbosacral spondylosis History or Present Illness: HPI: 65-year-old male returns for follow-up status post lumbar epidural steroid junctions and bilateral facet injections last seen May 10, 2020. Patient reports she did well but only for few days after the injection about 80% improvement for the first few days following the injection but the pain was not to a point where it was considered significantly bothering him until the last few months patient reports the pain returning in the low back bilaterally right essentially equal to left worse with walking standing changing positions sitting for prolonged periods wakes him from sleep at night most nights but not every night patient has recently seen his neurosurgeon who did a myelogram and has had recent MRI scan lumbar spine as well we discussed those with him today showing a multilevel degenerative changes with a mild right foraminal and central canal stenosis L2-3 minimal central canal stenosis at L3-4 mild bilateral foraminal stenosis at L5-S1. Patient reports pain is worse with standing walking changing position described as aching radiating across the back can be constant severe but not into the lower extremities much past the hips. Patient reports also pain with walking which seems to be secondary. Patient rates pain as a nine on scale 10 is worst over the past week six on average for its least and is a six today. Patient reports no loss of motor function no bowel or bladder incontinence but feels unstable on his feet when he is walking. Patient not use any assistive devices to ambulate. Physical Exam: VS: Blood pressure is 137/81 pulse 84 respirations 98.6 F height is 5 feet 10 inches weight is 249 pounds PE: PHYSICAL EXAMINATION: GENERAL: The patient is awake, alert, oriented, appropriate, very pleasant in demeanor, patient accompanied by his sister JOSEPHINEENT: Shows normocephalic, atraumatic. Extraocular movements are intact and symmetrical. Oral cavity: Mucous membranes moist and pink. NECK: Shows anterior throat supple without palpable lymphadenopathy noted. Swallow reflex symmetrical. CHEST: Shows normal on inspection. Breath sounds are clear bilaterally, no rales rhonchi or wheezes. HEART: Shows S1, S2 clear. No murmurs auscultated. ABDOMEN: Soft, nontender, nondistended, obese. No palpable organomegaly is noted. No rebound or guarding demonstrated. BACK: Shows spine grossly in the midline. Normal-appearing cervical lordotic curvature. There is increased thoracic kyphosis, some flattening of the lumbar lordotic curvature. Lumbar paraspinous muscles show symmetrical on inspection, on palpation shows some moderate tenderness diffusely throughout the upper, middle and lower distribution of the paraspinous muscles without specific trigger points, without radiation of pain. The patient has good rotational motion of the lumbar spine, both laterally as well as extension and flexion with significant tenderness with extension and axial loading lumbar spine bilaterally as well as with right and left lateral rotation greater than 10 degrees with slightly more on the right than the left but present with pain bilaterally forward flexion is performed at 45 degrees without significant pain reported. No tenderness over the spinous processes, sacrum or sacroiliac regions. EXTREMITIES: Lower extremities show deep tendon reflexes 2+ in the patellar and tendo calcaneus tendons. Motor exam is five on a scale of 5 with right dorsiflexion, extension, quadriceps and hamstring flexion and five/5 on the left. Peripheral pulses are 1+ posterior tibial. No peripheral edema is noted bilaterally. Lower extremities are warm and dry to touch, equal in color and appearance. SKIN: Shows warm and dry, good turgor. No edema. No sores, rashes or bruising throughout. Procedure: Procedure: Options were discussed with the patient. Patient chart reviews his current medication regimen updated current view of systems updated today as well. We will proceed with bilateral L4-5 and L5-S1 medial branch facet blocks today with fluoroscopic guidance. Risks were discussed including but not limited to: Bleeding, infection, possibility of epidural hematoma and subsequent neurological compromise, dural puncture, headaches, spinal cord and/or nerve damage, side effects of steroid medication, and poor results regarding pain control. Patient understands and wished to proceed. Patient will return to clinic in approximate 2 weeks for follow-up, was counseled as return appointment, activity level, and side effects beware of. Medication Injected: Med Injected: Under sterile prep and drape using C-arm fluoroscopic guidance AP and lateral and oblique views, bilateral L4-5 and L5-S1 facet joint MB's injections were performed, using quinke needles with stylette's x4,, medications injected: 120 mg Depo-Medrol +4 cc 0.25% bupivacaine +2 cc contrast. Condition at discharge stable patient tolerated the procedure well and no complications. Condition at Discharge: Condition at Discharge: Condition at discharge is stable, patient tolerated procedure well and had no complications. RUCHI LOYOLA MD Feb 17, 2021 14:09
--- NOTE | 2021-02-17 14:10 | PDOC4 ---
Procedure Note: ICD 10 Code: ICD 10 Code: M4 7.816 M4 7.817 M51.36 Procedure Note: Patient was consented for the bilateral lumbar facet medial branch blocks with fluoroscopic guidance. Risks were discussed including but not limited to: Bleeding, infection, possibility of epidural hematoma and subsequent neurological compromise, dural puncture, headaches, spinal cord and/or nerve damage, side effects of steroid medication, and poor results regarding pain control. Patient understands and wished to proceed. Under sterile prep and drape using C-arm fluoroscopic guidance AP and lateral and oblique views, bilateral L4-5 and L5-S1 facet joint MB's injections were performed, using quinke needles with stylette's x4,, medications injected: 120 mg Depo-Medrol +4 cc 0.25% bupivacaine +2 cc contrast. Condition at discharge stable patient tolerated the procedure well and no complications. RUCHI LOYOLA MD Feb 17, 2021 14:10
== END | disposition home or self-care (01) ==
LOC: PNCL 13:17
PROVIDERS: ATTEND Anesthesiology
DX: M51.16 Intervertebral disc disorders with radiculopathy, lumbar region (principal); M47.817 Spondylosis without myelopathy or radiculopathy, lumbosacral region; I10 Essential (primary) hypertension; I48.91 Unspecified atrial fibrillation; K21.9 Gastro-esophageal reflux disease without esophagitis; M19.90 Unspecified osteoarthritis, unspecified site; G47.30 Sleep apnea, unspecified; Z87.891 Personal history of nicotine dependence; Z79.82 Long term (current) use of aspirin; Z79.899 Other long term (current) drug therapy; Z98.890 Other specified postprocedural states; Z88.8 Allergy status to other drugs, medicaments and biological substances
CPT/HCPCS: 64493; 64494; J1040; J3490; Q9965

== ENCOUNTER → 2021-03-03 | Outpatient (CLI) | payer MEDICARE ==
[2020-12-23 09:05] VITALS: BP 125/81
--- NOTE | 2021-03-03 14:03 | PDOC4 ---
Procedure Note: ICD 10 Code: ICD 10 Code: M1 7.13 M2 5.563 Procedure Note: Patient was consented for bilateral intra-articular knee joint injections with fluoroscopic guidance. Risks were discussed including but not limited to bleeding infection possibility of intravascular injection sequelae, spread of local anesthetic and numbness, side effects steroid medication, exposure fluoroscopy, and poor results regarding pain control. Patient understands wished to proceed. Under sterile prep and drape patient in supine position using C-arm fluoroscopic guidance patient's bilateral knees were sterilely prepped and draped in usual fashion. Using C-arm fluoroscopy the medial aspect of the knee joint was identified and visualized and using 1% lidocaine 25-gauge needle of the area of the skin overlying the medial knee compartment was anesthetized. Using a 22- gauge quickie needle with stylette the joint was entered under direct visualization without difficulty. Stylet was removed at this time 2 cc of contrast was then injected with good spread within the knee joint itself without washout or uptake. At this time solution containing 3 cc each knee of 0.25 bupivacaine for total of 6 cc and a total of 120 mg Depo-Medrol, 60 mg per knee, were then injected. Preston were withdrawn and sterile bandages were applied. Patient tolerated procedure well and had no complications. RUCHI LOYOLA MD Mar 03, 2021 14:03
--- NOTE | 2021-03-03 14:03 | PDOC ---
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 Patient is doing much better his head to injections now with lumbar facet medial branch blocks with good results. Patient has had previous radiofrequency ablation in the past and did well with this and would like to discuss this also. Patient's chief complaint today however is bilateral knee joint pain right and left equal right sometimes worse on the left with walking and standing. Patient reports is worse with stepping on a stair or curb putting all his weight on 1 leg or the other better with sitting or laying down generally does not awaken him from sleep at night patient rates the pain in his knees is a 5 on a scale of 10 is worst 3 on average 3 its least and is a 3 today. Patient reports it is aching dull stinging at times start sharp and stabbing as well. Patient reports no new motor or sensory deficit no bowel or bladder incontinence Physical Exam: VS: Blood pressure is 134/78 pulse 78 respirations 18 temperature 97.8 was Fahrenheit height 5 feet 10 inches weight is 247 pounds. PE: PHYSICAL EXAMINATION: GENERAL: The patient is awake, alert, oriented, appropriate, very pleasant in demeanor HEENT: Shows normocephalic, atraumatic. Extraocular movements are intact and symmetrical. Oral cavity: Mucous membranes moist and pink. NECK: Shows anterior throat supple without palpable lymphadenopathy noted. Swallow reflex symmetrical. CHEST: Shows normal on inspection. Breath sounds are clear bilaterally. HEART: Shows S1, S2 clear. No murmurs auscultated. ABDOMEN: Soft, nontender, nondistended. No palpable organomegaly is noted. No rebound or guarding demonstrated. BACK: Shows spine grossly in the midline. Normal-appearing cervical lordotic curvature. There is slightly increased thoracic kyphosis, some minor flattening of the lumbar lordotic curvature. Lumbar paraspinous muscles show symmetrical on inspection, on palpation shows some moderate tenderness diffusely throughout the upper, middle and lower distribution of the paraspinous muscles without specific trigger points, without radiation of pain. The patient has good rotational motion of the lumbar spine, both laterally as well as extension and flexion with significant tenderness with extension of the lumbar spine as well as right and left lateral rotation bilaterally but without radiation to lower extremities forward flexion 45 degrees is performed without significant pain. No tenderness over the spinous processes, sacrum or sacroiliac regions. EXTREMITIES: Lower extremities show deep tendon reflexes 2+ in the patellar and tendo calcaneus tendons. Motor exam is 5 on a scale of 5 with right dorsiflexion, extension, quadriceps and hamstring flexion and 5/5 on the left. Peripheral pulses are 1+ posterior tibial. No peripheral edema is noted bilaterally. Lower extremities are warm and dry. Patient's knees show good range of motion without crepitus or ratcheting with some moderate tenderness with palpation both over the medial and collateral ligaments bilaterally. SKIN: Shows warm and dry, good turgor. No edema. No sores, rashes or bruising throughout. Procedure: Procedure: Options were discussed with the patient. Patient chart was reviewed as his current medication regimen updated current review of systems updated today as well. We will proceed with bilateral intra-articular knee joint injections today with fluoroscopic guidance. Risk discussed including but not limited to bleeding infection possibly intravascular injection sequelae spread local anesthetic numbness side effects steroid medication exposure fluoroscopy and poor results regarding pain control. Patient understands wished to proceed. Patient return to clinic in approximately 2 weeks for follow-up, was counseled as return appointment, activity level, and side effects beware of. Medication Injected: Med Injected: Under sterile prep and drape patient in supine position using C-arm fluoroscopic guidance patient's bilateral knees were sterilely prepped and draped in usual fashion. Using C-arm fluoroscopy the medial aspect of the knee joint was identified and visualized and using 1% lidocaine 25-gauge needle of the area of the skin overlying the medial knee compartment was anesthetized. Using a 22- gauge quickie needle with stylette the joint was entered under direct visualization without difficulty. Stylet was removed at this time 2 cc of contrast was then injected with good spread within the knee joint itself without washout or uptake. At this time solution containing 3 cc each knee of 0.25 bupivacaine for total of 6 cc and a total of 120 mg Depo-Medrol, 60 mg per knee, were then injected. [place] were withdrawn and sterile bandages were applied. Patient tolerated procedure well and had no complications. Condition at Discharge: Condition at Discharge: Condition at discharge is stable, patient tolerated the procedure well and had no complications. RUCHI LOYOLA MD Mar 03, 2021 14:03
== END | disposition home or self-care (01) ==
LOC: PNCL 13:06
PROVIDERS: ATTEND Anesthesiology
DX: M17.0 Bilateral primary osteoarthritis of knee (principal); M51.36 Other intervertebral disc degeneration, lumbar region; M47.817 Spondylosis without myelopathy or radiculopathy, lumbosacral region; I10 Essential (primary) hypertension; I48.91 Unspecified atrial fibrillation; K21.9 Gastro-esophageal reflux disease without esophagitis; G47.30 Sleep apnea, unspecified; Z87.891 Personal history of nicotine dependence; Z79.82 Long term (current) use of aspirin; Z79.899 Other long term (current) drug therapy; Z98.890 Other specified postprocedural states; Z88.8 Allergy status to other drugs, medicaments and biological substances
CPT/HCPCS: 20610; 77002; J1040; J3490; Q9965

== ENCOUNTER → 2021-03-08 | Outpatient (CLI) | payer MEDICARE ==
[2020-12-23 09:05] VITALS: BP 125/81
[~2021-03-08] MED LIST changes: -IOHEXOL 180 MG/ML 10 ML VIAL. ONE; +LIDOCAINE 1% PF 2 ML VIAL. ONE; +LIDOCAINE 2% PF 5 ML VIAL. ONE
--- NOTE | 2021-03-08 15:39 | PDOC ---
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 Patient reports is a 4 on a scale of 10 is worse over the past week 2 on average 1 its least is a 2 today patient describes as aching and dull without radiation to the lower extremities but in the low back worse with walking standing changing positions change from seated to standing position as well as prolonged sitting and occasionally wakes from sleep at night but not every night. Patient reports no bowel or bladder incontinence patient reports the pain is exacerbated with standing and extension of lumbar spine gently reaching for something above his head or standing for prolonged periods. Physical Exam: VS: Blood pressure is 118/83 pulse 79 respirations 18 temperature 97.5 F weight is 250 pounds. PE: PHYSICAL EXAMINATION: GENERAL: The patient is awake, alert, oriented, appropriate, very pleasant in demeanor HEENT: Shows normocephalic, atraumatic. Extraocular movements are intact and symmetrical. Oral cavity: Mucous membranes moist and pink. NECK: Shows anterior throat supple without palpable lymphadenopathy noted. Swallow reflex symmetrical. CHEST: Shows normal on inspection. Breath sounds are clear bilaterally, distant but no rales or rhonchi auscultated. HEART: Shows S1, S2 clear. No murmurs auscultated. ABDOMEN: Soft, nontender, nondistended, obese. No palpable organomegaly is noted. No rebound or guarding demonstrated. BACK: Shows spine grossly in the midline. Normal-appearing cervical lordotic curvature. There is increased thoracic kyphosis, some flattening of the lumbar lordotic curvature. Lumbar paraspinous muscles show symmetrical on inspection, on palpation shows some moderate tenderness diffusely throughout the upper, middle and lower distribution of the paraspinous muscles, but without specific trigger points, without radiation of pain. The patient has good rotational motion of the lumbar spine, both laterally as well as extension and flexion with significant tenderness with right and left lateral rotation greater than 10 degrees also significant tenderness with extension and greater than 10 degrees of axial loading of the lumbar spine with forward flexion 45 degrees performed without significant difficulty. No tenderness over the spinous processes, sacrum or sacroiliac regions. EXTREMITIES: Lower extremities show deep tendon reflexes 2 in the patellar and tendo calcaneus tendons. Motor exam is 5 on a scale of 5 with right dorsiflexion, extension, quadriceps and hamstring flexion and 5/5 on the left. Peripheral pulses are 1 posterior tibial. [] peripheral edema is noted bilaterally. Lower extremities are warm and dry to touch, equal in color and appearance. SKIN: Shows warm and dry, good turgor. No edema. No sores, rashes or bruising throughout. Procedure: Procedure: Options were discussed with patient. Patient chart reviewed his his current medication regimen updated current review of systems updated today as well. We will proceed with bilateral L4-5 and L5-S1 medial branch facet radiofrequency ablation with fluoroscopic guidance. Risks were discussed including but not limited to: Bleeding, infection, possibility of epidural hematoma and subsequent neurological compromise, dural puncture, headaches, spinal cord and/or nerve damage, side effects of steroid medication, potential thermal damage to the surrounding tissues including motor nerves and permanent ischemic damage, and po or results regarding pain control. Patient understands and wished to proceed. Medication Injected: Med Injected: Under sterile prep and drape patient in prone position using C-arm fluoroscopic guidance patient's lumbar spine was visualized in both AP oblique and lateral views using 1% lidocaine to topically anesthetize the areas overlying the L3-4, L4-5 and L5-S1 facet joints at the point of the medial branches. Using a 22- gauge insulated radiofrequency needle with curved tips and stylette, the needles were advanced to contact the region of the facet with the medial branch targets. This was repeated at the L3-4 L4-5 and L5-S1 levels. Stylette was removed and using radiofrequency probe inserted into each needle individually at each level and then motor tested with no motor stimulation of the lower extremity. Patient did have some multifidus musculature contraction in the lumbar spine only but without radiation. At this time 1 cc of 2% lidocaine was then injected in each needle after motor testing but prior to radiofrequency ablation. Needle position was confirmed continuously throughout the radio frequency ablation with both AP oblique and lateral views at each level. At this time radiofrequency ablation was carried out each level for 60 seconds at 80 C x 2 at each level with the tip of the needle turned 90 degrees after the first 60 seconds and then subsequent 60 seconds of radiofrequency ablation. Once radiofrequency ablation was completed solution containing 0.25% bupivacaine 1 cc and 20 mg Depo-Medrol was injected each level. Needle was then withdrawn. The procedure was repeated for the contralateral side as described as well. Patient had no paresthesias throughout the procedure no radiation of pain into the lower extremities no lower extremity motor response with motor testing bilaterally. Please see radiofrequency flowsheet for levels, temperatures, impedance, etc. Condition at Discharge: Condition at Discharge: Condition at discharge stable, pain tolerated the procedure well and had no complications. RUCHI LOYOLA MD Mar 08, 2021 15:39
== END | disposition home or self-care (01) ==
LOC: PNCL 14:23
PROVIDERS: ATTEND Anesthesiology
DX: M51.36 Other intervertebral disc degeneration, lumbar region (principal); M47.817 Spondylosis without myelopathy or radiculopathy, lumbosacral region; M17.0 Bilateral primary osteoarthritis of knee; I10 Essential (primary) hypertension; I48.91 Unspecified atrial fibrillation; K21.9 Gastro-esophageal reflux disease without esophagitis; G47.30 Sleep apnea, unspecified; Z87.891 Personal history of nicotine dependence; Z79.82 Long term (current) use of aspirin; Z79.899 Other long term (current) drug therapy; Z98.890 Other specified postprocedural states; Z88.8 Allergy status to other drugs, medicaments and biological substances
CPT/HCPCS: 64635; 64636; J1040; J3490

== ENCOUNTER → 2021-04-05 | Outpatient (CLI) | payer MEDICARE ==
[2020-12-23 09:05] VITALS: BP 125/81
[~2021-04-05] MED LIST changes: -BUPIVACAINE MPF 0.25% 10 ML VIAL. ONE; -LIDOCAINE 1% PF 2 ML VIAL. ONE; -LIDOCAINE 2% PF 5 ML VIAL. ONE; +MELO15TA23 PO; -methylPREDNISolone ACETATE 80 MG/ML VIAL. ONE
--- NOTE | 2021-04-05 13:43 | PDOC ---
Progress Note - Pain Clinic Date of Service: DOS: DATE: 04/05/21 TIME: 13:39 Diagnosis: Dx: Lumbar radiculopathy with lumbar degenerative disease and lumbar and lumbosacral spondylosis Bilateral knee joint pain with osteoarthritis History or Present Illness: HPI: 65-year-old male returns for follow-up status post bilateral L4-5 and L5-S1 medial branch radiofrequency ablation with good results about 80% improvement patient reports still doing well but his chief complaint is bilateral knee pain we had injected his knees with cortisone March 03 with good results about 50 to 60% improvement patient reports the pain is returning now in the knees worse with walking standing weightbearing changing position especially with stepping up a curb or putting all his weight on 1 leg such as stairs which is more significant patient reports right essentially equal to the left is aching and sharp at times severe with walking and climbing patient reports the pain is a 10 on scale 10 is worse over the past week 8 on average 5 its least and is an 8 today. Patient reports no loss of motor function no bowel or bladder incontinence and while his back is doing much better his knees are limiting him to his activity fairly significantly patient reports better with sitting or laying or getting off of his feet not awaken from sleep at night. Physical Exam: VS: Blood pressure is 182/106 pulse 94 respirations are 16 temperature is 97.6 F height is 5 foot 10 inches weight is 250 pounds PE: PHYSICAL EXAMINATION: GENERAL: The patient is awake, alert, oriented, appropriate, very pleasant in demeanor HEENT: Shows normocephalic, atraumatic. Extraocular movements are intact and symmetrical. Oral cavity: Mucous membranes moist and pink. Dentition is intact. NECK: Shows anterior throat supple without palpable lymphadenopathy noted. Swallow reflex symmetrical. CHEST: Shows normal on inspection. Breath sounds are clear bilaterally, distant but no rales rhonchi or wheezes auscultated. HEART: Shows S1, S2 clear. No murmurs auscultated. ABDOMEN: Soft, nontender, nondistended. No palpable organomegaly is noted. No rebound or guarding demonstrated. BACK: Shows spine grossly in the midline. Normal-appearing cervical lordotic curvature. There is slightly increased thoracic kyphosis, some flattening of the lumbar lordotic curvature. Lumbar paraspinous muscles show symmetrical on i nspection, on palpation shows some moderate tenderness diffusely throughout the upper, middle and lower distribution of the paraspinous muscles, but without specific trigger points, without radiation of pain. The patient has good rotational motion of the lumbar spine, both laterally as well as extension and flexion with only minimal discomfort. EXTREMITIES: Lower extremities show deep tendon reflexes 2+ in the patellar and tendo calcaneus tendons. Motor exam is 5 on a scale of 5 with right dorsiflexion, extension, quadriceps and hamstring flexion and 5/5 on the left. Peripheral pulses are 1+ posterior tibial. No peripheral edema is noted bilaterally. Lower extremities are warm and dry. Patient's knees show good range of motion both actively and passively without ratcheting without crepitus bilaterally. Patient shows moderate tenderness over the medial and lateral aspect of the collateral ligaments with direct palpation but without radiation. SKIN: Shows warm and dry, good turgor. No edema. No sores, rashes or bruising throughout. Procedure: Procedure: Options were discussed with the patient. Patient chart reviews his current medication regimen updated current review of systems updated today as well. We will order Synvisc for patient's knees this may be beneficial with good results initially after steroid injection in the knees but pain returning. Also will start new medication of meloxicam 15 mg patient was given instructions well side effects beware with the medication. Patient will follow up in approximately 1 week plan on the bilateral Synvisc 1 injection at that time with fluoroscopic gu idance. Medication Injected: Med Injected: None Condition at Discharge: Condition at Discharge: Condition at discharge is stable. RUCHI LOYOLA MD Apr 05, 2021 13:43
== END | disposition home or self-care (01) ==
LOC: PNCL 13:11
PROVIDERS: ATTEND Anesthesiology
DX: M51.16 Intervertebral disc disorders with radiculopathy, lumbar region (principal); M47.26 Other spondylosis with radiculopathy, lumbar region; M47.27 Other spondylosis with radiculopathy, lumbosacral region; M17.0 Bilateral primary osteoarthritis of knee; M25.561 Pain in right knee; M25.562 Pain in left knee; I10 Essential (primary) hypertension; I48.91 Unspecified atrial fibrillation; K21.9 Gastro-esophageal reflux disease without esophagitis; G47.30 Sleep apnea, unspecified; M19.90 Unspecified osteoarthritis, unspecified site; Z98.890 Other specified postprocedural states; Z96.641 Presence of right artificial hip joint; Z90.49 Acquired absence of other specified parts of digestive tract; Z79.01 Long term (current) use of anticoagulants
CPT/HCPCS: 99212; G0463

== ENCOUNTER → 2021-04-11 | Outpatient (CLI) | payer MEDICARE ==
[2020-12-23 09:05] VITALS: BP 125/81
[~2021-04-11] MED LIST changes: +HYLAN G-F 20 48 MG/6 ML SYRINGE INT ART ONE; +IOHEXOL 180 MG/ML 10 ML VIAL. ONE
--- NOTE | 2021-04-11 08:47 | PDOC ---
Progress Note - Pain Clinic Date of Service: DOS: DATE: 04/11/21 TIME: 08:42 Diagnosis: Dx: Lumbar radiculopathy with lumbar degenerative disease lumbar spondylosis and lumbosacral spondylosis Bilateral knee joint pain with osteoarthritis History or Present Illness: HPI: [id number] male returns status post radiofrequency ablation lumbar facet medial branches with about 80% improvement patient's chief complaint is knee pain bilaterally we discussed this last week regarding Synvisc injection patient would like to proceed with this. Patient reports no significant pain in the bilateral knees with walking standing putting all of his weight on 1 leg or the other especially climbing stairs or steps and going down stairs is especially noticeable with the pain patient reports that he stayed in bed pretty much all day yesterday because of the pain in his knees patient reports pain is a 9 on scale 10 is worse over the past week 8 on average to its least and is a 6 today patient reports is aching severe can be unbearable on and off in intensity. Patient reports difficulty with walking ambulating secondary to the pain and is using a cane which he has with him today. Patient reports no loss of motor function with significant disability secondary to the bilateral knee pain as well as his back pain. Physical Exam: VS: Blood pressure is 112/74 pulse 66 respirations 16 temperature 97.4 F and height is 5 feet 10 inches PE: PHYSICAL EXAMINATION: GENERAL: The patient is awake, alert, oriented, appropriate, very pleasant in demeanor HEENT: Shows normocephalic, atraumatic. Extraocular movements are intact and symmetrical. NECK: Shows anterior throat supple without palpable lymphadenopathy noted. Swallow reflex symmetrical. CHEST: Shows normal on inspection. Breath sounds are clear bilaterally, distant but no rales or rhonchi. HEART: Shows S1, S2 clear. No murmurs auscultated. ABDOMEN: Soft, nontender, nondistended, obese. No palpable organomegaly is noted. BACK: Shows spine grossly in the midline. Normal-appearing cervical lordotic curvature. There is slightly increased thoracic kyphosis, some minor flattening of the lumbar lordotic curvature. Lumbar paraspinous muscles show symmetrical on inspection, on palpation shows some moderate tenderness diffusely throughout the upper, middle and lower distribution of the paraspinous muscles without specific trigger points, without radiation of pain. The patient has good rotational motion of the lumbar spine, both laterally as well as extension and flexion with moderate tenderness with extension but only moderate and much better with forward flexion right and left lateral rotation is performed without significant difficulty. EXTREMITIES: Lower extremities show deep tendon reflexes 2 per in the patellar and tendo calcaneus tendons. Motor exam is 5 on a scale of 5 with right dorsiflexion, extension, quadriceps and hamstring flexion and 5/5 on the left. Peripheral pulses are 1 posterior tibial. No peripheral edema is noted bilaterally. Lower extremities are warm and dry to touch, equal in color and appearance. SKIN: Shows warm and dry, good turgor. No edema. No sores, rashes or bruising throughout. Procedure: Procedure: Options were discussed with the patient. Patient chart reviews his current medication regimen updated current review of systems updated today as well. We will proceed with bilateral Synvisc 1 knee injections with fluoroscopic guidance. Risk were discussed including but not limited to bleeding infection possibility of intravascular injection sequelae spread of local anesthetic and numbness, extravasation of Synvisc 1, exposure to fluoroscopy and poor results regarding pain control. Patient understands wished to proceed. Medication Injected: Med Injected: Under sterile prep and drape patient in supine position using C-arm fluoroscopic guidance patient's bilateral knees were sterilely prepped and draped in usual fashion. Using C-arm fluoroscopy the medial aspect of the knee joint was identified and visualized and using 1% lidocaine 25-gauge needle of the area of the skin overlying the medial knee compartment was anesthetized. Using a 22- gauge quickie needle with stylette the joint was entered under direct visualization without difficulty. Stylet was removed at this time 1 cc of contrast was then injected with good spread within the knee joint itself without washout or uptake. At this time Synvisc 1, 6 cc per knee, was then injected. [place] were withdrawn and sterile bandages were applied. Patient tolerated procedure well and had no complications. Condition at Discharge: Condition at Discharge: Condition at discharge stable, paced tolerated procedure well and had no co mplications. RUCHI OLYOLA MD Apr 11, 2021 08:47
--- NOTE | 2021-04-11 08:48 | PDOC4 ---
Procedure Note: ICD 10 Code: ICD 10 Code: M2 5.563 M1 7.13 Procedure Note: Patient was consented for bilateral intra-articular knee joint injections with Synvisc 1 and fluoroscopic guidance. Risk were discussed including but not limited to bleeding infection possibility of intravascular injection sequelae spread of local anesthetic and numbness, sterilization of Synvisc 1, pand poor results regarding regarding pain control. Patient understands wished to proceed. Under sterile prep and drape patient in supine position using C-arm fluoroscopic guidance patient's bilateral knees were sterilely prepped and draped in usual fashion. Using C-arm fluoroscopy the medial aspect of the knee joint was identified and visualized and using 1% lidocaine 25-gauge needle of the area of the skin overlying the medial knee compartment was anesthetized. Using a 22- gauge quickie needle with stylette the joint was entered under direct visualization without difficulty. Stylet was removed at this time 1 cc of contrast was then injected with good spread within the knee joint itself without washout or uptake. At this time Synvisc 1, 6 cc per knee, was then injected. [place] were withdrawn and sterile bandages were applied. Patient tolerated procedure well and had no complications. RUCHI LOYOLA MD Apr 11, 2021 08:48
== END | disposition home or self-care (01) ==
LOC: PNCL 08:11
PROVIDERS: ATTEND Anesthesiology
DX: M17.0 Bilateral primary osteoarthritis of knee (principal); M51.16 Intervertebral disc disorders with radiculopathy, lumbar region; M47.26 Other spondylosis with radiculopathy, lumbar region; M47.27 Other spondylosis with radiculopathy, lumbosacral region; I10 Essential (primary) hypertension; I48.91 Unspecified atrial fibrillation; G47.30 Sleep apnea, unspecified; K21.9 Gastro-esophageal reflux disease without esophagitis; Z87.891 Personal history of nicotine dependence; Z79.82 Long term (current) use of aspirin; Z79.899 Other long term (current) drug therapy; Z98.890 Other specified postprocedural states; Z88.8 Allergy status to other drugs, medicaments and biological substances
CPT/HCPCS: 20610; 77002; Q9965; J7325

== ENCOUNTER → 2021-05-19 | Outpatient (CLI) | payer MEDICARE ==
[2020-12-23 09:05] VITALS: BP 125/81
[~2021-05-19] MED LIST changes: +BUPIVACAINE MPF 0.25% 10 ML VIAL. ONE; -HYLAN G-F 20 48 MG/6 ML SYRINGE INT ART ONE; +methylPREDNISolone ACETATE 40 MG/ML VIAL. ONE
--- NOTE | 2021-05-19 15:05 | PDOC ---
Progress Note - Pain Clinic Date of Service: DOS: DATE: 05/19/21 TIME: 14:56 Diagnosis: Dx: Lumbar radiculopathy lumbar degenerative disease lumbar and lumbosacral spondylosis Bilateral knee joint pain with osteoarthritis History or Present Illness: HPI: 65-year-old male returns status post Synvisc injections bilaterally in April 11, 2021 patient reports did very well but 70% improvement the pain is returning now to moderate extent over the past few days in the knees bilaterally worse with walking standing weightbearing stepping on stairs climbing steps we always weight on 1 knee or the other patient reports much better with sitting or laying down generally does not awaken her from sleep at night patient reports the pain is a 9 on scale 10 is worst over the past week 6 on average 6 its least and is a 6 today. Patient reports is tight and achy in the anterior knee medial knee most pronounced as well as posterior in the knees right essentially equal to left. Patient reports no new motor or sensory deficits patient's back is doing very well also. Reports no bowel or bladder incontinence. Physical Exam: VS: Blood pressure is 132/78 pulse 58 respirations 18 temperature 98.1 F weight is 258 pounds PE: PHYSICAL EXAMINATION: GENERAL: The patient is awake, alert, oriented, appropriate, very pleasant in demeanor HEENT: Shows normocephalic, atraumatic. Extraocular movements are intact and symmetrical. Oral cavity: Mucous membranes moist and pink. Dentition is intact. NECK: Shows anterior throat supple without palpable lymphadenopathy noted. Swallow reflex symmetrical. CHEST: Shows normal on inspection. Breath sounds are clear bilaterally, distant but no rales rhonchi or wheezes auscultated. HEART: Shows S1, S2 clear. No murmurs auscultated. ABDOMEN: Soft, nontender, nondistended, obese. No palpable organomegaly is noted. BACK: Shows spine grossly in the midline. Normal-appearing cervical lordotic curvature. There is slightly increased thoracic kyphosis, some minor flattening of the lumbar lordotic curvature. Lumbar paraspinous muscles show symmetrical on inspection, on palpation shows some moderate tenderness diffusely throughout the upper, middle and lower distribution of the paraspinous muscles, but without specific trigger points, without radiation of pain. The patient has good rotational motion of the lumbar spine, both laterally as well as extension and flexion without significant difficulty. EXTREMITIES: Lower extremities show deep tendon reflexes 2+ in the patellar and tendo calcaneus tendons. Motor exam is 5 on a scale of 5 with right dorsiflexion, extension, quadriceps and hamstring flexion and 5/5 on the left. Peripheral pulses are 1+ posterior tibial. No peripheral edema is noted bilaterally. Patient's knees show good range of motion without specific ratcheting or crepitus moderate tenderness with palpation of the medial collateral ligament as well as the medial aspect of the patella but without radiation. Lower extremities are warm and dry to touch, equal in color and appearance. SKIN: Shows warm and dry, good turgor. No edema. No sores, rashes or bruising throughout. Procedure: Procedure: Options were discussed with patient. Patient's old chart was reviewed his current medication regimen updated current review of systems updated today as well. We will proceed with bilateral intra-articular knee joint injections today with fluoroscopic guidance. Risk discussed including but not limited to bleeding infection possibly intravascular injection sequelae spread local anesthetic numbness side effects steroid medications post arthroscopy and portals regarding pain control. Patient understands wished to proceed. Patient will return to clinic in approximately 8 weeks for follow-up, was counseled as return appointment activity level and side effects to be aware of. Medication Injected: Med Injected: Under sterile prep and drape patient in supine position using C-arm fluoroscopic guidance patient's bilateral knees were sterilely prepped and draped in usual fashion. Using C-arm fluoroscopy the medial aspect of the knee joint was identified and visualized and using 1% lidocaine 25-gauge needle of the area of the skin overlying the medial knee compartment was anesthetized. Using a 22- gauge quickie needle with stylette the joint was entered under direct visualization without difficulty. Stylet was removed at this time 2 cc of contrast was then injected with good spread within the knee joint itself without washout or uptake. At this time solution containing 3 cc each knee of 0.25 bupivacaine for total of 6 cc and a total of 80 mg Depo-Medrol, 40 mg per knee, were then injected. [place] were withdrawn and sterile bandages were applied. Patient tolerated procedure well and had no complications. Condition at Discharge: Condition at Discharge: Condition at discharge is stable, patient tolerated the procedure well and had no complications. RUCHI LOYOLA MD May 19, 2021 15:05
--- NOTE | 2021-05-19 15:06 | PDOC4 ---
Procedure Note: ICD 10 Code: ICD 10 Code: M2 5.563 M1 7.13 Procedure Note: Patient was consented for bilateral intra-articular knee joint injections with fluoroscopic guidance. Risks are discussed including but not limited to bleeding infection possibility of intravascular injection sequelae spread of local anesthetic and numbness side effects steroid medication, and poor results regarding pain control. Patient understands wished to proceed. Under sterile prep and drape patient in supine position using C-arm fluoroscopic guidance patient's bilateral knees were sterilely prepped and draped in usual fashion. Using C-arm fluoroscopy the medial aspect of the knee joint was identified and visualized and using 1% lidocaine 25-gauge needle of the area of the skin overlying the medial knee compartment was anesthetized. Using a 22- gauge quickie needle with stylette the joint was entered under direct visualization without difficulty. Stylet was removed at this time 2 cc of contrast was then injected with good spread within the knee joint itself without washout or uptake. At this time solution containing 3 cc each knee of 0.25 bupivacaine for total of 6 cc and a total of 80 mg Depo-Medrol, 40 mg per knee, were then injected. [place] were withdrawn and sterile bandages were applied. Patient tolerated procedure well and had no complications RUCHI LOYOLA MD May 19, 2021 15:06
== END | disposition home or self-care (01) ==
LOC: PNCL 14:25
PROVIDERS: ATTEND Anesthesiology
DX: M17.0 Bilateral primary osteoarthritis of knee (principal); M51.16 Intervertebral disc disorders with radiculopathy, lumbar region; M47.27 Other spondylosis with radiculopathy, lumbosacral region; I48.91 Unspecified atrial fibrillation; G47.30 Sleep apnea, unspecified; K21.9 Gastro-esophageal reflux disease without esophagitis; I10 Essential (primary) hypertension; Z87.891 Personal history of nicotine dependence; Z79.82 Long term (current) use of aspirin; Z79.899 Other long term (current) drug therapy; Z98.890 Other specified postprocedural states; Z88.8 Allergy status to other drugs, medicaments and biological substances
CPT/HCPCS: 20610; 77002; J1030; J3490; Q9965

== ENCOUNTER → 2021-08-31 | Outpatient (CLI) | payer MEDICARE ==
[2020-12-23 09:05] VITALS: BP 125/81
[~2021-08-31] MED LIST changes: -BUPIVACAINE MPF 0.25% 10 ML VIAL. ONE; +CLOB15GE TP; +DICL50TA2 PO; +DOCU-109 PO; +HYDR-2761 PO; +HYDR30CR74 RC; -IOHEXOL 180 MG/ML 10 ML VIAL. ONE; +LISI1TAB37 PO; +METO-239 PO; +TIZA-75 PO; -methylPREDNISolone ACETATE 40 MG/ML VIAL. ONE
--- NOTE | 2021-08-31 17:06 | RAD ---
MR of the right knee - [employer]hew protocol History: Reason: DEGENERATIVE ARTHRITIS OF KNEE BILATERAL. RIGHT KNEE PAIN / Spl. Instructions: MASSEY AND NEPHEW PROTOCOL / History: . Technique: Images are obtained in accordance with the standard [employer] protocol. Note this is not a diagnostic exam, but solely for the purpose of [facility] representative con struction. Right knee joint osteoarthritis most prominent in the medial compartment with chondral eff acement and subchondral cystic change. Degeneration/maceration body-posterior horn medial meniscus. S mall knee joint effusion with synovitis. Electronically signed by: Deangelo Morales MD (08/31/2021 5:04 PM) [id number]
--- NOTE | 2021-09-01 08:34 | RAD ---
XR BONE LENGTH History: Reason: RIGHT KNEE PAIN / Spl. Instructions: VISIONAIRE PROTOCAL / History: Technique: AP view of the right lower extremity. Comparison: August 01, 2021 Findings: Right total hip arthroplasty. Advanced right knee degenerative changes. No dislocation. No acute frac ture. Moderate ankle DJD. Benign-appearing exostosis medial femoral condyle, unchanged. Vascular calc ific effusions. Impression: 1. Advanced right knee DJD. Electronically signed by: Jonathan Isaac DO (09/01/2021 8:32 AM) [id number]
== END ==
LOC: MRI 11:15
PROVIDERS: ATTEND Orthopaedic Surgery Sports Medicine
DX: M17.11 Unilateral primary osteoarthritis, right knee (principal); M19.079 Primary osteoarthritis, unspecified ankle and foot; M25.461 Effusion, right knee; M65.861 Other synovitis and tenosynovitis, right lower leg; M25.861 Other specified joint disorders, right knee
CPT/HCPCS: 73721; 77073

== ENCOUNTER → 2021-09-05 | Outpatient (CLI) | payer MEDICARE, OTHER ==
[2020-12-23 09:05] VITALS: BP 125/81
[2021-09-05 09:50] LABS: BASO # 0.1 x10^3/uL (0.0-0.2); BASO % 2 % (0-3); EOS # 0.4 x10^3/uL (0.0-0.7); EOS % 6 % (0-3); HEMATOCRIT 45.8 % (39.0-53.0); HEMOGLOBIN 14.9 g/dL (13.0-17.5); LYMPH # 1.7 x10^3/uL (1.0-4.8); LYMPH % 25 % (24-48); MEAN CORPUSCULAR HEMOGLOBIN 31 pg (25-35); MEAN CORPUSCULAR HGB CONC 33 g/dL (31-37); MEAN CORPUSCULAR VOLUME 94 fL (79-100); MONO # 0.8 x10^3/uL (0.0-1.1); MONO % 11 % (0-9); NEUT # 3.9 x10^3/uL (1.8-7.7); NEUT % 56 % (31-73); PLATELET COUNT 254 x10^3/uL (140-400); RED BLOOD COUNT 4.86 x10^6/uL (4.30-5.70)
[2021-09-05 10:00] LABS: PROTHROMBIN TIME PATIENT 13.5 SEC (11.7-14.0)
[2021-09-05 10:04] LABS: ALBUMIN 3.5 g/dL (3.4-5.0); CALCIUM 8.8 mg/dL (8.5-10.1); CREATININE 1.3 mg/dL (0.7-1.3); GFR 55.1
--- NOTE | 2021-09-05 16:14 | RAD ---
PA and lateral views of the chest. Comparison: 06/14/2020. Indication: Preop evaluation Findings: Left atrial appendage clips identified. The heart size is enlarged but stable. No pneumothorax or eff usion. No air space or interstitial disease. The bony structures are intact. Impression: 1. No acute cardiopulmonary process. 2. Stable cardiomegaly. Electronically signed by: Baltazar Rao MD (09/05/2021 4:11 PM) [facility]
[2021-09-06 04:14] LABS: HEMOGLOBIN A1C 5.4 % (4.8-5.6)
== END ==
LOC: SURGPAT 12:57
PROVIDERS: ATTEND Orthopaedic Surgery Sports Medicine
DX: Z01.818 Encounter for other preprocedural examination (principal); I51.7 Cardiomegaly; M17.11 Unilateral primary osteoarthritis, right knee
CPT/HCPCS: 36415; 71046; 80048; 82040; 82306; 83036; 85025; 85610; 85651; 85730; 87641

== ENCOUNTER 2021-09-27 05:50 | Observation (INO) | payer MEDICARE, OTHER ==
[2021-09-07 09:36] VITALS: BP 120/77
[~2021-09-27] VITALS: Ht 177.8 cm; Wt 123.4 kg
[2021-09-27] MEDS ORDERED: MORPHINE SULFATE 5 MG, KETOROLAC 30MG VIAL 30 MG, ROPIVacaine 0.5% PF 60 ML, EPINEPHrin... INT ART ONE (06:00)
[2021-09-27] MEDS ORDERED: TRANEXAMIC ACID 1,000 MG in IV NS 50ML -- 1ST BAG INJ ONE (06:00)
[2021-09-27] MEDS ORDERED: IV RINGERS,LACTATED 1000ML 1,000 ML IV SCH (06:00)
[2021-09-27] MEDS ORDERED: TV=62ml MORPHINE 5 MG, KETOROLAC 30 MG, ROPIV, EPI INT ART ONE (06:00)
[2021-09-27] MEDS ORDERED: ACETAMINOPHEN 500 MG TABLET PO PRN (06:00)
[2021-09-27] MEDS ORDERED: fentaNYL PF VIAL 100 MCG/2 ML VIAL IVP PRN ×2 (06:00→10:00)
[2021-09-27 06:34] VITALS: BP 129/81
[2021-09-27] MEDS ORDERED: TRANEXAMIC ACID in NS IVPB 50 ML ONE ×2 (06:59→08:02)
[2021-09-27] MEDS ORDERED: 0.9 % SODIUM CHLORIDE 10 ML DISP.SYRIN. IV PRN (07:30)
[2021-09-27] MEDS ORDERED: fentaNYL PF VIAL 100 MCG/2 ML VIAL ONE ×2 (07:42→10:20)
--- NOTE | 2021-09-27 07:51 | PDOC4 ---
Operative Note Operative Note Date of procedure: 09/27/2021 Surgeon: Bebeto Pop Orthotist Or Prosthetist: Vitaliy Sanchez and Aisha Cooper, certified surgical engineer first assistant Preoperative diagnosis: Advanced primary right knee degenerative joint disease Postoperative diagnosis: Same Procedure performed: Right total knee arthroplasty Anesthesia: General Findings: Advanced primary right knee DJD Tourniquet time: 61 minutes Blood loss: 50 mL Complications: None Components inserted: [employer]sey & Nephew size 6 Oxinium femur, size 4 tibial baseplate, 9 mm thick articular insert, 23 mm biconvex patella Reason for procedure: Patient is a very pleasant 66-year-old male who has tried and failed conservative therapies to address his progressive right knee pain. He was having difficulties with his activities daily living. We discussed the risk benefits and alternatives to the above procedure and he wished to proceed. Description of procedure: Patient was greeted in the preoperative area by myself or the correct extremity was verified and marked. He was taken back to the OR and antibiotics started as he was brought back. Once in the OR, he was transferred on spine to the operating room table and secured to bed with all pressure points padded and underwent successful induction of a general anesthetic. We then proceeded to place a nonsterile tourniquet to his right thigh and a padded rest across foot of the bed and a padded bump laterally at his hip to maintain his knee at 90 degrees passively. Examination under anesthesia demonstrated range of motion was 0 to 120 degrees. His knee was stable to varus and valgus, in extension and 30 degrees of flexion. After this, the right lower extremity was prepped and draped in the usual sterile fashion including an Ioban sandwich. We conducted our standard preoperative timeout. I palpated marked surface anatomy and quirino lines for my planned incision. The extremity was exsanguinated with an Esmarch and tourniquet insufflated to 250 mmHg. I then incised skin with a scalpel and dissected subcutaneous tissue with electrocautery, cauterizing bleeders as they were encountered. I exposed the extensor mechanism including the quadriceps, borders of the patella and patellar tendon. I then made my standard medial parapatellar arthrotomy and then perform my medial release with a combination of electrocautery and Syed elevator. After this, I bluntly dissected the fat pad off the posterior aspect of the patellar tendon and protected this with an [place] while I excised the fat pad. I then flexed the knee and excised the cruciate ligaments and released the anterior horns of the meniscus. After this I palpated marked surface anatomy for the epicondylar axis and [place] line. I then gained entry to the distal femur with a drill and placed my long intramedullary guide. I then impacted my distal femoral cutting guide into position and secured it. I removed the guide [place] and made my distal femoral cut. After this I referenced my epicondylar axis and [place] line and impacted my distal femoral cutting block into position after head sized for my femoral component. The 5 in 1 cutting block was secured with threaded pins. I then made these cuts, protecting the extensor mechanism and the soft tissues. I delivered these bony pieces from the operative field after removing my cutting block. I then used a small curved osteotome to remove osteophytes posteriorly. I took care to make sure all loose bony debris was removed. After this, I placed my popliteal retractor and repositioned my Z retractors to protect the collaterals. I then used an extra medullary tibial cutting guide and pinned this into position and made my proximal tibial cut. I delivered this bony piece from the operative field with the assistance of elect rocautery. I palpated along the edges to make sure I did not leave any bony remnants. After this, the leg was brought onto extension I checked alignment with a spacer block and drop [place] and was happy. I then proceeded to reposition the knee and added back my retractors into the operative field and sized and pinned into position my trial tibial baseplate. I then drilled and punched for this. After this, I placed my femoral component position and secured it with a single pin and proceeded to ream and punched for my cam box. After this I trialed polyethylene trials felt the above combination gave the best range of motion and stability. I then directed my attention to sizing and reaming for my biconvex patella. With all trial components in place, patient had excellent patellar tracking. At this point, all trial components were removed and all bony surfaces were thoroughly irrigated. We proceeded to cement and placed the tibial component followed by the femoral component. Trial articular insert was secured in place and the cement was allowed polymerized in extension. Care was taken remove excess bone cement. Range of motion was 0 to 140 degrees. Knee was stable to varus and valgus in extension and mid flexion. I then remove the trial articular insert and placed my polyethylene articular insert and secured in place confirming that it had fully seated and engaged. I then injected my periarticular mixture into the periincisional soft tissues and around the knee as well. Tourniquet was let down, some venous bleeders were cauterized. At this point, arthrotomy was closed with simple interrupted #1 Vicryl, arthrotomy closure was tested in flexion with no extravasation of blood noted. After this inverted interrupted 2-0 Vicryl in a multilayered fashion was used for subcutaneous tissue and running 3-0 Monocryl in a buried subcuticular fashion was used for skin. All counts were correct x2 prior to wound closure. No complications. At the conclusion, the leg and knee were cleansed and dried and our incisional wound VAC was applied. This was followed by soft roll and an Pro wrap to his right lower extremity. He was then awakened from anesthesia and transferred on spine to the recovery room cart and taken to PACU in stable and extubated condition. Postoperative plan is to admit him to the floor for DVT and antibiotic prophylaxis, pain control as well. He received PT and OT as well. BEBETO POP II, MD Sep 27, 2021 07:51
[2021-09-27] MEDS ORDERED: DEXAMETHASONE SOD PHOS 4 MG/ML VIAL ONE (07:54)
[2021-09-27] MEDS ORDERED: PHENYLEPHRINE in 0.9% NACL PF 1 MG/10 ML SYRINGE. IV ONE (07:54)
[2021-09-27] MEDS ORDERED: PROPOFOL 10 MG/ML (20ML) VIAL. IV ONE (07:54)
[2021-09-27] MEDS ORDERED: LIDOCAINE 2% PF 5 ML VIAL. ONE (07:54)
[2021-09-27] MEDS ORDERED: ONDANSETRON PF 4 MG/2 ML VIAL. ONE (07:54)
[2021-09-27] MEDS ORDERED: SUCCINYLCHOLINE 200 MG/10 ML VIAL. ONE (07:55)
[2021-09-27] MEDS ORDERED: ROCURONIUM 50 MG/5 ML VIAL. ONE (07:55)
[2021-09-27] MEDS ORDERED: TRANEXAMIC ACID 1,000 MG in IV NS 50ML -- 2ND BAG INJ ONE (08:00)
[2021-09-27] MEDS ORDERED: SEVOFLURANE > 120 MINUTES. IH ONE (08:03)
[2021-09-27] MEDS ORDERED: KETAMINE HCL IN NACL, ISO-OSM 50 MG/5 ML SYRINGE ONE (08:19)
[2021-09-27] MEDS ORDERED: HYDROmorphone 2 MG/ML INJ. ONE ×2 (09:11→10:37)
[2021-09-27] MEDS ORDERED: SUGAMMADEX SODIUM 200 MG/2 ML VIAL. IVP ONE (09:45)
[2021-09-27] MEDS ORDERED: hydrOXYzine 25 MG TABLET PO PRN (10:00)
[2021-09-27] MEDS ORDERED: diphenhydrAMINE 50 MG/ML VIAL IVP PRN (10:00)
[2021-09-27] MEDS ORDERED: PROCHLORPERAZINE 5 MG TABLET. PO PRN (10:00)
[2021-09-27] MEDS ORDERED: MORPHINE SULFATE 2 MG/ML INJ. IVP PRN (10:00)
[2021-09-27] MEDS ORDERED: CLOBETASOL EMOLLIENT 0.05% TOPICAL CREAM 15GM TUBE. TP PRN (10:00)
[2021-09-27] MEDS ORDERED: DEXTROSE 50% 25 GM / 50ML DISP.SYRIN. IV PRN (10:00)
[2021-09-27] MEDS ORDERED: METOCLOPRAMIDE HCL 10 MG/2 ML VIAL. IVP PRN (10:00)
[2021-09-27] MEDS ORDERED: IV DEXTROSE 5% 250 ML BAG. IV PRN (10:00)
[2021-09-27] MEDS ORDERED: HYDROCORTISONE 2.5% RECTAL CREAM 30GM TUBE. RC PRN (10:00)
[2021-09-27] MEDS ORDERED: CALCIUM CARBONATE 500 MG TAB.CHEW PO PRN (10:00)
[2021-09-27] MEDS ORDERED: PROCHLORPERAZINE 10 MG/2 ML VIAL. ONE (10:19)
[2021-09-27] MEDS ORDERED: ROPIVacaine 0.5% PF 20 ML VIAL. ONE (10:20)
[2021-09-27] MEDS: PROCHLORPERAZINE 10 MG/2 ML VIAL. IVP PRN ×2 (10:23→10:32)
[2021-09-27] MEDS: fentaNYL PF VIAL 100 MCG/2 ML VIAL IVP PRN ×2 (10:24→10:31)
[2021-09-27] MEDS: HYDROmorphone 2 MG/ML INJ. IVP PRN ×4 (10:37→11:08)
[2021-09-27] MEDS ORDERED: MORPHINE SULFATE 2 MG/ML INJ. ONE ×2 (10:43→12:07)
[2021-09-27] MEDS: MORPHINE SULFATE 2 MG/ML INJ. IVP PRN ×6 (10:45→12:18)
--- NOTE | 2021-09-27 11:25 | RAD ---
Right knee 2 views. HISTORY: Post arthroplasty degenerative arthritis AP and lateral views were taken of the right knee. There is a total joint prosthesis in place. There is no acute fracture. There is a drainage tube present. IMPRESSION: 1. Operative changes from right knee arthroplasty. Electronically signed by: Arturo Torres MD (09/27/2021 11:23 AM) [id number]
[2021-09-27] MEDS ORDERED: oxyCODONE ER 10 MG TAB.ER.12H PO ONE (11:30)
[2021-09-27] MEDS ORDERED: ALPRAZolam 0.5 MG TABLET PO ONE (12:45)
[2021-09-27 13:33] VITALS: BP 141/80
[2021-09-27] MEDS: IV NORMAL SALINE 1000ML BAG 1,000 ML IV SCH (14:35)
[2021-09-27 15:00] VITALS: BP 129/93
--- NOTE | 2021-09-27 15:23 | NUR ---
Admission: Patient arrived to unit via gurney accompanied by transport and PACU nurse. Patients sister Ladonna Castro at bedside. Patient drowsy. Patient able to answer some admission question, sister helped answer admission questions. Call light with in reach. Bed alarm on. Reported pain is controlled at this time.
[2021-09-27] MEDS ORDERED: WARFARIN 7.5 MG TABLET. PO ONE (16:00)
[2021-09-27] MEDS: ONDANSETRON PF 4 MG/2 ML VIAL. IVP SCH ×2 (16:47→23:00)
[2021-09-27] MEDS: FERROUS SULFATE 325 MG TABLET. PO SCH (16:48)
[2021-09-27] MEDS: ONDANSETRON ODT 4 MG TAB.RAPDIS. PO SCH ×2 (16:49→23:00)
[2021-09-27 19:00] VITALS: BP 120/84
[2021-09-27] MEDS ORDERED: ZOLPIDEM 5 MG TABLET. PO PRN (20:00)
[2021-09-27] MEDS: DOCUSATE SODIUM 100 MG CAPSULE. PO SCH (21:08)
[2021-09-27 23:00] VITALS: BP 149/87
[2021-09-27] MEDS: tiZANidine 4 MG TABLET. PO PRN (23:00)
[2021-09-28] MEDS: oxyCODONE IR 5 MG TABLET PO PRN ×5 (01:28→21:10)
[2021-09-28 03:00] VITALS: BP 116/82
[2021-09-28] MEDS: ONDANSETRON PF 4 MG/2 ML VIAL. IVP SCH ×2 (05:57→12:00)
[2021-09-28] MEDS: PANTOPRAZOLE 40 MG TABLET.DR. PO SCH (05:57)
[2021-09-28] MEDS: ONDANSETRON ODT 4 MG TAB.RAPDIS. PO SCH ×2 (05:58→12:00)
[2021-09-28] MEDS ORDERED: MAGNESIUM HYDROXIDE 2,400 MG/30 ML ORAL.SUSP. PO PRN (06:00)
[2021-09-28 07:00] VITALS: BP 134/78
[2021-09-28 07:04] LABS: PROTHROMBIN TIME PATIENT 14.2 SEC (11.7-14.0)
[2021-09-28 07:05] LABS: HEMATOCRIT 40.8 % (39.0-53.0); HEMOGLOBIN 13.6 g/dL (13.0-17.5)
--- NOTE | 2021-09-28 08:32 | PDOC ---
ORTHO PROGRESS NOTES DATE: 09/28/21 TIME: 08:31 Subjective He tells me that his pain has been tolerable. He is tolerating a regular diet. No particular complaints. He was ambulating yesterday. Vitals Vital Signs Date Time Temp Pulse Resp B/P (MAP) Pulse Ox O2 Delivery O2 Flow Rate FiO2 09/28/21 07:00 98.0 91 18 134/78 (96) 97 98.0 09/28/21 06:27 Room Air 09/28/21 03:00 2.0 Labs Laboratory Tests Test 09/27/21 06:15 09/28/21 04:00 09/28/21 04:10 POC SARS CoV-2 Antigen Negative (NEGATIVE) Hemoglobin 13.6 g/dL (13.0-17.5) Hematocrit 40.8 % (39.0-53.0) Mean Corpuscular Hemoglobin Concent 33 g/dL (31-37) Prothrombin Time 14.2 SEC (11.7-14.0) Prothromb Time International Ratio 1.1 (0.8-1.1) Laboratory Tests Test 09/28/21 04:00 09/28/21 04:10 Hemoglobin 13.6 g/dL (13.0-17.5) Hematocrit 40.8 % (39.0-53.0) Mean Corpuscular Hemoglobin Concent 33 g/dL (31-37) Prothrombin Time 14.2 SEC (11.7-14.0) Prothromb Time International Ratio 1.1 (0.8-1.1) Notes He is awake and alert. Sitting in a chair eating breakfast. Examination of his right knee reveals mild effusion. Normal motor and sensation are present distally. Dressing has minimal drainage on it. Assessment and Plan He will continue PT OT, finish his antibiotic prophylaxis. He will continue Coumadin. He is anticipating placement and social work will see him later today. MEHREEN POP II, MD Sep 28, 2021 08:32
[2021-09-28] MEDS: ACETAMINOPHEN 500 MG TABLET PO SCH ×3 (09:04→21:09)
[2021-09-28] MEDS: METOPROLOL SUCC 24HR ER 50 MG TAB.ER.24H. PO SCH (09:04)
[2021-09-28] MEDS: FERROUS SULFATE 325 MG TABLET. PO SCH ×2 (09:04→17:00)
[2021-09-28] MEDS: DOCUSATE SODIUM 100 MG CAPSULE. PO SCH ×2 (09:04→21:09)
[2021-09-28] MEDS: MULTIVITAMIN with MINERAL TABLET. PO SCH (09:04)
[2021-09-28] MEDS: SENNOSIDES/DOCUSATE 8.6/50MG TABLET. PO SCH (09:04)
[2021-09-28] MEDS: hydroCHLOROthiazide 12.5 MG TABLET PO SCH (09:05)
[2021-09-28] MEDS: ALPRAZolam 0.5 MG TABLET PO SCH (09:08)
[2021-09-28] MEDS: IV NORMAL SALINE 1000ML BAG 1,000 ML IV SCH (10:00)
[2021-09-28 11:00] VITALS: BP 120/83
[2021-09-28] MEDS: LISINOPRIL 20 MG TABLET PO SCH (13:26)
[2021-09-28 15:00] VITALS: BP 128/83
[2021-09-28] MEDS ORDERED: BISACODYL 10 MG SUPP.RECT. PR PRN (16:00)
[2021-09-28] MEDS ORDERED: WARFARIN 5 MG TABLET. PO ONE (16:00)
--- NOTE | 2021-09-28 16:00 | NUR ---
Pharmacy Warfarin Dosing Note S:Pharmacy consulted to assist with anticoagulation therapy started 09/27/21 with target INR: 1.6 - 2.5 O:ALEJANDRAAKOSUA is a 66 year old M with TKA LABS: Last INR: 1.1 Last HGB: 13.6 Last HCT: 40.8 Last PLT: Last dose of 7.5 mg given on 09/27/21 at 1648 Previous Regimen: Vitamin K given: N Drug Interaction Changes: Ongoing Drug Interactions: A:INR of 1.1 is below desired range. Target range for this patient is: 1.6 - 2.5 P: Warfarin dose: 5 mg Today at 1600 Bridge Therapy: None Next INR due 09/29/21 am Pharmacy anticoagulation service will continue to follow. JAZMINE [facility], 09/28/21 1603
[2021-09-28] MEDS ORDERED: ONDANSETRON ODT 4 MG TAB.RAPDIS. PO PRN (18:00)
[2021-09-28] MEDS ORDERED: ONDANSETRON PF 4 MG/2 ML VIAL. IVP PRN (18:00)
--- NOTE | 2021-09-28 18:42 | NUR ---
Stewart has had a fair day. he has been painful. He has been medicated with oxy ir x2 and morphine times x1. original keagan wrap removed. He does have drainage in the lower 8th of dressing. Hemovac was accidently removed and there is about 50 cent piece of swelling in that area; no bruising or redness.
[2021-09-28 19:00] VITALS: BP 142/88
[2021-09-28 23:00] VITALS: BP 140/88
[2021-09-29] MEDS: ACETAMINOPHEN 500 MG TABLET PO SCH ×4 (02:20→21:00)
[2021-09-29] MEDS: oxyCODONE IR 5 MG TABLET PO PRN ×3 (02:21→21:10)
[2021-09-29] MEDS: tiZANidine 4 MG TABLET. PO PRN (02:44)
[2021-09-29 03:20] VITALS: BP 137/90
--- NOTE | 2021-09-29 03:22 | CONS ---
DATE OF CONSULTATION: 09/28/2021 LOCATION: He is in room 426. HISTORY OF PRESENT ILLNESS: This 66-year-old male well known to me from followup in the office. The patient had a right total knee replacement yesterday by Dr. Blake. We are following him in the postop period. He lives alone and lives upstairs in an apartment type setting. He has to climb stairs and will need [facility] discharge for a while until he is more mobile. PAST MEDICAL HISTORY: Remarkable for history of cataracts, atrial fibrillation, hypertension, obstructive sleep apnea, GERD, osteoarthritis, anxiety. PAST SURGICAL HISTORY: He has had prior back surgery, appendectomy. MEDICATIONS: Brought with the patient, listed on the computer have been addressed. ALLERGIES: HE IS ALLERGIC TO BACITRACIN, NEOMYCIN, POLYMYXIN B. SOCIAL HISTORY: He has a history of smoking, social alcohol. No drug use. FAMILY HISTORY: Noncontributory. REVIEW OF SYSTEMS: Remarkable for decent pain control today following his total knee replacement yesterday, but is concerned that it will not be at some point and wants to make sure that he stays ahead of it pain sandy. PHYSICAL EXAMINATION: GENERAL: He is a well-developed, well-nourished, pleasant male, in no acute distress. VITAL SIGNS: Stable. He is afebrile. HEAD, EYES, EARS, NOSE AND THROAT: Unremarkable. NECK: Supple, without adenopathy or thyromegaly. CHEST: Clear to auscultation. HEART: Irregularly irregular with controlled rate. ABDOMEN: Soft, nontender, without hepatosplenomegaly or mass. EXTREMITIES: Without cyanosis, clubbing or significant edema. Right knee is wrapped. NEUROLOGIC: Intact. ASSESSMENT: Status post right total knee replacement. ADDITIONAL DIAGNOSES: Atrial fibrillation, hypertension. PLAN: Continue preoperative medications for his underlying disease therapy. I am going to have social work check in the [facility] to take him following with his insurance. The patient will be monitored, managed and treated appropriately. ARAVIND/BREEZY/POOJA DR: Aldo TID: [id number]
[2021-09-29 05:37] LABS: HEMATOCRIT 35.3 % (39.0-53.0)
[2021-09-29 05:50] LABS: PROTHROMBIN TIME PATIENT 22.1 SEC (11.7-14.0)
[2021-09-29 07:00] VITALS: BP 135/66
[2021-09-29] MEDS: ALPRAZolam 0.5 MG TABLET PO SCH (08:42)
[2021-09-29] MEDS: FERROUS SULFATE 325 MG TABLET. PO SCH ×2 (08:44→16:31)
[2021-09-29] MEDS: MULTIVITAMIN with MINERAL TABLET. PO SCH (08:44)
[2021-09-29] MEDS: LISINOPRIL 20 MG TABLET PO SCH (08:49)
[2021-09-29] MEDS: hydroCHLOROthiazide 12.5 MG TABLET PO SCH (08:51)
[2021-09-29] MEDS: SENNOSIDES/DOCUSATE 8.6/50MG TABLET. PO SCH (08:51)
[2021-09-29] MEDS: METOPROLOL SUCC 24HR ER 50 MG TAB.ER.24H. PO SCH (08:51)
[2021-09-29] MEDS: DOCUSATE SODIUM 100 MG CAPSULE. PO SCH ×2 (08:52→21:10)
[2021-09-29] MEDS: PANTOPRAZOLE 40 MG TABLET.DR. PO SCH (08:52)
--- NOTE | 2021-09-29 09:26 | PDOC ---
UYEN JO 09/29/21 0926: PROGRESS NOTES Date of Service DATE: 09/29/21 TIME: 09:20 Subjective Subjective POD #2 s/p R TKA Patient was seen and examined this morning. Awake sitting upright in bed. Reports pain and discomfort to right knee with mobilization/therapy exercises. Tolerating p.o. intake postoperatively. Denies chest pain or shortness of air. No abdominal pain or discomfort. Patient reports having had a bowel movement postoperatively. No incentive spirometer at bedside. No acute events reported overnight. Objective Vital Signs Vital Signs Date Time Temp Pulse Resp B/P (MAP) Pulse Ox O2 Delivery O2 Flow Rate FiO2 09/29/21 08:51 87 135/66 09/29/21 07:00 18 100 Room Air 09/29/21 03:20 98.0 98.0 09/28/21 08:00 2.0 Physical Exam Orthopedic examination of the right lower extremity: Skin is warm and dry. Surgical dressing intact over the anterior aspect of the right knee. Dried drainage noted to the inferior aspect of the dressing. Compression stocking in place. Compartments are soft and compressible. Wiggles toes on command. EHL/FHL intact. Plantarflexion/dorsiflexion intact. Sensation to light touch intact throughout all dermatomes. Calf nontender. No pain with passive stretch. No evidence of thrombus. Labs Laboratory Tests Test 09/28/21 04:00 09/28/21 04:10 09/29/21 03:55 Hemoglobin 13.6 g/dL (13.0-17.5) 12.0 g/dL (13.0-17.5) Hematocrit 40.8 % (39.0-53.0) 35.3 % (39.0-53.0) Mean Corpuscular Hemoglobin Concent 33 g/dL (31-37) 34 g/dL (31-37) Prothrombin Time 14.2 SEC (11.7-14.0) 22.1 SEC (11.7-14.0) Prothromb Time International Ratio 1.1 (0.8-1.1) 2.0 (0.8-1.1) Laboratory Tests Test 09/29/21 03:55 Hemoglobin 12.0 g/dL (13.0-17.5) Hematocrit 35.3 % (39.0-53.0) Mean Corpuscular Hemoglobin Concent 34 g/dL (31-37) Prothrombin Time 22.1 SEC (11.7-14.0) Prothromb Time International Ratio 2.0 (0.8-1.1) Assessment Assessment 66 y/o M osteoarthritis R knee * s/p R TKA 09/27 - [place] * WBAT RLE * PT/OT for mobilization, gait training and fall prevention * Recommend utilizing walker to aid with ambulation and prevent falls * Maintain surgical dressing; re-enforce/change prn * Encourage use of IS while awake * Hgb 12.0 this AM; VSS * Post-op abx complete * DVT ppx (Coumadin) INR 2.0 * CM for discharge planning; discharge arrangements pending; plan [facility]; will require 1 more midnight; hopeful for discharge tomorrow * Follow-up with orthopedic clinic in 2-3 weeks following discharge from the hospital with repeat x-rays of the right knee. Call to schedule appointment prior to discharge at [phone]. Justicifation of Admission Dx: Justifications for Admission: Justification of Admission Dx: Yes MEHREEN POP II, MD 09/29/21 1206: PROGRESS NOTES Plan Plan of Care Patient was seen and examined by myself. I agree with the above findings. He is awaiting placement and insurance approval. I would anticipate transfer tomorrow. UYEN JO Sep 29, 2021 09:26 MEHREEN POP II, MD Sep 29, 2021 12:06
[2021-09-29] MEDS: IV NORMAL SALINE 1000ML BAG 1,000 ML IV SCH (10:00)
[2021-09-29 11:00] VITALS: BP 109/67
[2021-09-29] MEDS ORDERED: OXYC5TAB4 PO (12:08)
--- NOTE | 2021-09-29 12:10 | SNU/HH DC ---
DISCHARGE ORDERS DISCHARGE INFORMATION: DISCHARGE DATE: Sep 30, 2021 FINAL DIAGNOSIS Advanced right knee primary degenerative degenerative joint disease, status post total knee arthroplasty CONDITION ON DISCHARGE: Stable CODE STATUS: Code Status: Full DETENTION: SNF STAY <30 DAYS: Yes HOSPICE: HOSPICE: No HOSPICE EVAL & TREAT: No LTAC: ADMIT TO LTAC: No POST DISCHARGE ORDERS: ACTIVITY ORDERS: Activity as tolerated WEIGHT BEARING STATUS: As tolerated BATHING ORDERS: Shower-keep dressing dry DIET AFTER DISCHARGE: ADA WOUND/INCISION CARE: Ice to area for comfort, Do not change dressing FOLLOW-UP: PHYSICIAN FOLLOW-UP: Surgeon in 2 weeks ANTICOAGULATION F/U NEEDED: As per pharmacy TREATMENT/EQUIPMENT ORDERS: ADAPTIVE EQUIPMENT NEEDED: [facility] For: Evalulation/Treatment Occupational Therapy For: Evaluation/Treatment DISCHARGE MEDICATIONS: Home Meds Reported Medications Clobetasol Propionate (CLOBETASOL PROPIONATE) 15 Gm Gel..gram., 15 GM TP PRN DAILY PRN for RASH, EACH 09/07/21 Hydrocortisone (Hydrocortisone) 30 Gm Cream.appl, 30 GM RC PRN DAILY PRN for RASH, EACH 09/07/21 Hydrocodone Bit/Acetaminophen (HYDROCODONE-APAP 5-325 ) 1 Tab Tablet, 1 TAB PO PRN Q6HRS PRN for PAIN, TAB 0 Refills 09/07/21 Tizanidine Hcl (TIZANIDINE HCL) 4 Mg Tablet, 4 MG PO HS PRN for MUSCLE SPASMS, TAB 09/07/21 Diclofenac Potassium (DICLOFENAC POTASSIUM) 50 Mg Tablet, 75 MG PO BID for PAIN CONTROL, TAB 09/07/21 Lisinopril/Hydrochlorothiazide (LISINOPRIL-HCTZ 20-12.5 MG TAB) 1 Each Tablet, 1 TAB PO DAILY for CONTROL BP, #90 TAB 3 Refills 09/07/21 Docusate Sodium (COLACE) 100 Mg Capsule, 100 MG PO BID for PREVENT CONSTIPATION, CAP 09/07/21 Metoprolol Succinate (METOPROLOL SUCCINATE ( XL )) 25 Mg Tab.er.24h, 50 MG PO DAILY for FOR HYPERTENSION, #30 TAB 0 Refills 09/07/21 Meloxicam (MELOXICAM) 15 Mg Tablet, 1 TAB PO DAILY for arthritis for 30 Days, #30 TAB 0 Refills 04/11/21 Esomeprazole Magnesium (NEXIUM CAPSULE) 40 Mg Capsule.dr, 1 CAP PO DAILY for rx, #30 CAP 5 Refills 12/23/20 Doxycycline Monohydrate (DOXYCYCLINE MONOHYDRATE) 100 Mg Capsule, 1 CAP PO DAILY for rx, #28 CAP 12/23/20 Hydroxyzine Hcl (HYDROXYZINE HCL) 25 Mg Tablet, 1 TAB PO PRN QID PRN for PRN ITCHING/RASH, #60 TAB 12/23/20 Aspirin (ASPIRIN) 81 Mg Tab.chew, 1 TAB PO DAILY for heart, #30 TAB 3 Refills 10/02/19 Alprazolam (ALPRAZOLAM) 0.5 Mg Tablet, 1 TAB PO DAILY for anxiety, #30 TAB 10/02/19 MEHREEN POP II, MD Sep 29, 2021 12:10
--- NOTE | 2021-09-29 14:55 | NUR ---
Pharmacy Warfarin Dosing Note S: Pharmacy consulted to assist with anticoagulation therapy started 09/27/21 O: ALEJANDRAAKOSUA is a 66 year old M with right TKA LABS: Last INR: 2 Last HGB: 12 Last HCT: 35.3 Last PLT: - Last dose of 5 mg given on 09/28/21 at 1609 Vitamin K given: N A:INR of 2 is within desired range, elevated significantly from yesterday's value of 1.0. Target range for this patient is: 1.6 - 2.5 P: Warfarin dose: 2 mg Today at 1600 Bridge Therapy: None Next INR due 09/30/21 Pharmacy anticoagulation service will continue to follow. MARLIN MEEKS [facility], 09/29/21 3000
[2021-09-29 15:00] VITALS: BP 123/74
[2021-09-29] MEDS ORDERED: WARFARIN 2 MG TABLET. PO ONE (16:00)
[2021-09-29 19:00] VITALS: BP 117/62
[2021-09-29 23:00] VITALS: BP 143/69
[2021-09-30 03:00] VITALS: BP 148/53
[2021-09-30] MEDS: ACETAMINOPHEN 500 MG TABLET PO SCH ×2 (03:00→08:03)
[2021-09-30] MEDS: oxyCODONE IR 5 MG TABLET PO PRN ×2 (03:19→10:54)
[2021-09-30] MEDS ORDERED: diphenhydrAMINE HCL 25 MG CAPSULE PO ONE (03:30)
[2021-09-30 06:20] LABS: PROTHROMBIN TIME PATIENT 19.9 SEC (11.7-14.0)
[2021-09-30 07:15] VITALS: BP 148/89
[2021-09-30] MEDS: hydroCHLOROthiazide 12.5 MG TABLET PO SCH (08:03)
[2021-09-30] MEDS: MULTIVITAMIN with MINERAL TABLET. PO SCH (08:03)
[2021-09-30] MEDS: PANTOPRAZOLE 40 MG TABLET.DR. PO SCH (08:04)
[2021-09-30] MEDS: FERROUS SULFATE 325 MG TABLET. PO SCH (08:04)
[2021-09-30] MEDS: SENNOSIDES/DOCUSATE 8.6/50MG TABLET. PO SCH (08:04)
[2021-09-30] MEDS: DOCUSATE SODIUM 100 MG CAPSULE. PO SCH (08:04)
[2021-09-30] MEDS: ALPRAZolam 0.5 MG TABLET PO SCH (08:04)
[2021-09-30] MEDS: METOPROLOL SUCC 24HR ER 50 MG TAB.ER.24H. PO SCH (08:09)
[2021-09-30] MEDS: LISINOPRIL 20 MG TABLET PO SCH (08:09)
--- NOTE | 2021-09-30 08:09 | PN ---
DATE: 09/30/2021 LOCATION: He is in room 426. SUBJECTIVE: This 66-year-old male status post total knee replacement. He is doing better daily. Having lot of pain issues at night, trying to sleep still that is disturbing the same. Can see some slight improvement on a daily basis in therapy. OBJECTIVE: VITAL SIGNS: Stable. He is afebrile. INR is 1.7. CHEST: Clear to auscultation. HEART: Regular rate and rhythm. ABDOMEN: Benign. NEUROVASCULAR: Extremities intact. He will be leaving for skilled hopefully today if his insurance will approve. ASSESSMENT: 1. Status post total knee replacement, on anticoagulation. 2. Anemia postop, mild. PLAN: Continue rehab until safe to return to home with ongoing rehab there. CHENTE DR: Aldo TID: [id number]
--- NOTE | 2021-09-30 08:44 | PDOC ---
ORTHO PROGRESS NOTES DATE: 09/30/21 TIME: 08:43 Subjective He has had a painful night last night again. Overall though he feels like his pain is tolerable. He has been making slow steady progress with PT. Denies any other complaint or concern Vitals Vital Signs Date Time Temp Pulse Resp B/P (MAP) Pulse Ox O2 Delivery O2 Flow Rate FiO2 09/30/21 08:09 70 149/89 09/30/21 07:15 98.7 20 98 Room Air 98.7 Labs Laboratory Tests Test 09/29/21 03:55 09/30/21 05:25 Hemoglobin 12.0 g/dL (13.0-17.5) Hematocrit 35.3 % (39.0-53.0) Mean Corpuscular Hemoglobin Concent 34 g/dL (31-37) Prothrombin Time 22.1 SEC (11.7-14.0) 19.9 SEC (11.7-14.0) Prothromb Time International Ratio 2.0 (0.8-1.1) 1.7 (0.8-1.1) Laboratory Tests Test 09/30/21 05:25 Prothrombin Time 19.9 SEC (11.7-14.0) Prothromb Time International Ratio 1.7 (0.8-1.1) Notes He is awake and alert in bed. Minimal drainage is present in his incision. Range of motion is 10 degrees to 80 degrees comfortably. Normal motor and sensation present in his right lower extremity. Assessment and Plan From my standpoint, he can be transferred today. Weight-bear as tolerated. He should receive PT and OT. Wound care instructions were discussed as well. MEHREEN POP II, MD Sep 30, 2021 08:44
--- NOTE | 2021-09-30 08:46 | PDOC3 ---
Discharge Summary Visit Information Date of Admission: Sep 27, 2021 Date of Discharge: Sep 30, 2021 Admitting Diagnosis: Advanced primary right knee degenerative joint disease Final Diagnosis Right total knee arthroplasty Brief Hospital Course Allergies Allergies Coded Allergies Type Severity Reaction Last Updated Verified bacitracin Adverse Reaction Intermediate aggravates wound healing 10/15/19 Yes neomycin Adverse Reaction Intermediate aggravates wound healing 10/15/19 Yes polymyxin B Adverse Reaction Intermediate aggravates wound healing 10/15/19 Yes Vital Signs Vital Signs Date Time Temp Pulse Resp B/P (MAP) Pulse Ox O2 Delivery O2 Flow Rate FiO2 09/30/21 08:09 70 149/89 09/30/21 07:15 98.7 20 98 Room Air 98.7 Lab Results Laboratory Tests Test 09/29/21 03:55 09/30/21 05:25 Hemoglobin 12.0 g/dL (13.0-17.5) Hematocrit 35.3 % (39.0-53.0) Mean Corpuscular Hemoglobin Concent 34 g/dL (31-37) Prothrombin Time 22.1 SEC (11.7-14.0) 19.9 SEC (11.7-14.0) Prothromb Time International Ratio 2.0 (0.8-1.1) 1.7 (0.8-1.1) Laboratory Tests Test 09/30/21 05:25 Prothrombin Time 19.9 SEC (11.7-14.0) Prothromb Time International Ratio 1.7 (0.8-1.1) Brief Hospital Course Mr. Tilley is a 66 old male who presented to my outpatient orthopedic surgery clinic with complaints of severe and progressive right knee pain. We had a discussion of the risk benefits and alternatives and he elected to proceed with total knee arthroplasty. He tolerated surgery well and recovered well from anesthesia in the PACU. He was taken [facility] to [facility] floor for care and observation. He received DVT and antibiotic prophylaxis as well as PT and OT. His pain regimen was adjusted to keep him more comfortable and at discharge his pain was tolerable on oral pain medicine. He had normal bowel and bladder function was tolerating a regular diet. He was having some difficulty with activities of daily living and therefore we discussed admission to rehab and he was agreeable to this. Discharge Information Condition at Discharge: Stable Follow Up: Weeks Disposition/Orders: D/C to Another Facility Scheduled Alprazolam (Alprazolam) 0.5 Mg Tablet, 1 TAB PO DAILY for anxiety, #30 (Reported) Entered as Reported by: LUCAS CASTAÑEDA on 10/02/191054 Last Taken: Unknown Dose on 09/27/21544 Last Action: Continued on 09/27/21736 by ZAK POP MD Aspirin (Aspirin) 81 Mg Tab.chew, 1 TAB PO DAILY for heart, #30 Ref 3 (Reported) Entered as Reported by: LUCAS CASTAÑEDA on 10/02/191054 Last Taken: Unknown Dose on 09/19/21 Last Action: HELD on 09/27/21736 by ZAK POP MD Docusate Sodium (Colace) 100 Mg Capsule, 100 MG PO BID for PREVENT CONSTIPATION, (Reported) Entered as Reported by: IVON SALMERON on 09/07/21925 Last Taken: Unknown Dose on 09/26/21 Last Action: Continued on 09/27/21736 by ZAK POP MD Doxycycline Monohydrate (Doxycycline Monohydrate) 100 Mg Capsule, 1 CAP PO DAILY for rx, #28 (Reported) Entered as Reported by: SARAH BAIRES on 12/23/20845 Last Taken: Unknown Dose on 09/26/21 Last Action: HELD on 09/27/21736 by ZAK POP MD Esomeprazole Magnesium (Nexium Capsule) 40 Mg Capsule.dr, 1 CAP PO DAILY for rx, #30 Ref 5 (Reported) Entered as Reported by: SARAH BAIRES on 12/23/20845 Last Taken: Unknown Dose on 09/27/21544 Last Action: Converted on 09/27/21736 by ZAK POP MD Lisinopril/Hydrochlorothiazide (Lisinopril-Hctz 20-12.5 Mg Tab) 1 Each Tablet, 1 TAB PO DAILY for CONTROL BP, #90 Ref 3 (Reported) Entered as Reported by: IVON SALMERON on 09/07/21925 Last Taken: Unknown Dose on 09/26/21 Last Action: Converted on 09/27/21736 by ZAK POP MD Metoprolol Succinate (Metoprolol Succinate ( Xl )) 25 Mg Tab.er.24h, 50 MG PO DAILY for FOR HYPERTENSION, #30 Ref 0 (Reported) Entered as Reported by: IVON SALMERON on 09/07/21925 Last Taken: Unknown Dose on 09/27/2145 Last Action: Continued on 09/27/21736 by ZAK POP MD Scheduled PRN Clobetasol Propionate (Clobetasol Propionate) 15 Gm Gel..gram., 15 GM TP PRN DAILY PRN for RASH, (Reported) Entered as Reported by: IVON SALMERON on 09/07/21925 Last Taken: Unknown Dose on 09/26/21 Last Action: Converted on 09/27/21736 by ZAK POP MD Hydrocortisone (Hydrocortisone) 30 Gm Cream.appl, 30 GM RC PRN DAILY PRN for RASH, (Reported) Entered as Reported by: IVON SALMERON on 09/07/21925 Last Taken: Unknown Dose on 09/26/21 Last Action: Continued on 09/27/21736 by ZAK POP MD Hydroxyzine Hcl (Hydroxyzine Hcl) 25 Mg Tablet, 1 TAB PO PRN QID PRN for PRN ITCHING/RASH, #60 (Reported) Entered as Reported by: SARAH BAIRES on 12/23/2046 Last Taken: Unknown Dose on 09/26/21 Last Action: Continued on 09/27/21736 by ZAK POP MD Oxycodone Hcl (Oxycodone Hcl Immed.release ) 5 Mg Tablet, 5 MG PO PRN Q4HRS PRN for Pain score 4-6 for 30 Days, #60 Prescribed by: ZAK POP MD on 09/29/21 1208 Tizanidine Hcl (Tizanidine Hcl) 4 Mg Tablet, 4 MG PO HS PRN for MUSCLE SPASMS, (Reported) Entered as Reported by: IVON SALMERON on 09/07/21925 Last Taken: Unknown Dose on 09/26/21 Last Action: Continued on 09/27/21736 by ZAK POP MD Discontinued Medications Diclofenac Potassium (Diclofenac Potassium) 50 Mg Tablet, 75 MG PO BID for PAIN CONTROL, (Reported) Entered as Reported by: IVON SALMERON on 09/07/21925 Last Taken: Unknown Dose on 09/26/21 Last Action: HELD on 09/27/21736 by ZAK POP MD Hydrocodone Bit/Acetaminophen (Hydrocodone-Apap 5-325 ) 1 Tab Tablet, 1 TAB PO PRN Q6HRS PRN for PAIN, Ref 0 (Reported) Entered as Reported by: IVON SALMERON on 09/07/21 09 Last Taken: Unknown Dose on 09/13/21 Last Action: HELD on 09/27/21736 by ZAK POP MD Meloxicam (Meloxicam) 15 Mg Tablet, 1 TAB PO DAILY for arthritis for 30 Days, #30 Ref 0 (Reported) Entered as Reported by: LUCAS CASTAÑEDA on 04/11/21829 Last Taken: Unknown Dose on 09/27/21 0545 Last Action: HELD on 09/27/21736 by ZAK POP MD Patient Instructions Patient Instructions [facility]. He should continue his Coumadin as well as PT and OT, okay to weight-bear as tolerated with an assistive device. Wound care was discussed with the patient and provided in written form. I would like to see him back in 2 weeks, sooner should a problem arise. Worrisome signs and symptoms that should prompt a phone call were discussed and his questions were answered. Justicifation of Admission Dx: Justifications for Admission: Justification of Admission Dx: Yes MEHREEN POP II, MD Sep 30, 2021 08:46
--- NOTE | 2021-09-30 09:03 | PN ---
DATE: 09/29/2021 DAILY PROGRESS NOTE LOCATION: He is in room 426. SUBJECTIVE: This 66-year-old male is 2 days status post right total knee replacement. Pain control seems to be decent at this point of time. Morning labs show an INR of 2 and hemoglobin has dropped only slightly since surgery. He is awake and alert, . He is concerned that he is not finding a place to go for [facility] again as he lives in an apartment where he has to get to his apartment. OBJECTIVE: VITAL SIGNS: Stable. He is afebrile . EXTREMITIES: Intact. ASSESSMENT: Status post right total knee replacement. PLAN: With ongoing anticoagulation, mild exertion. services skilled nursing for discharge tomorrow. ARAVIND/GALO/NANO DR: ARAVIND/yeny TID: [id number]
[2021-09-30] MEDS ORDERED: WARFARIN 2 MG TABLET. PO ONE (11:00)
[2021-09-30 11:01] VITALS: BP 127/78
--- NOTE | 2021-09-30 11:30 | NUR ---
[facility] by w/justin triana.
[2021-09-30 11:37] LABS: HEMATOCRIT 38.1 % (39.0-53.0)
--- NOTE | 2021-09-30 11:46 | NUR ---
Report called to Estrella SANTO at [facility].
--- NOTE | 2021-09-30 12:03 | NUR ---
Pharmacy Warfarin Dosing Note S:Pharmacy consulted to assist with anticoagulation therapy started 09/27/21 with target INR: 1.6 - 2.5 O:ALEJANDRAAKOSUA is a 66 year old M with TKA LABS: Last INR: 1.7 Last HGB: 13 Last HCT: 38.1 Last PLT: - Last dose of 2 mg given on 09/29/21 at 1632 Previous Regimen: Vitamin K given: N Drug Interaction Changes: Ongoing Drug Interactions: A:INR of 1.7 is within desired range. Target range for this patient is: 1.6 - 2.5 P: Warfarin dose: 2 mg Today at 1600 Bridge Therapy: None Next INR due IN AM Pharmacy anticoagulation service will continue to follow. CARLTON PEDROZA, [facility], 09/30/21 [id number]
--- NOTE | 2021-09-30 18:07 | PATHOLOGY ---
[facility] Accession Number: [id number] . 01 Material submitted: . knee - RT PATELLA BONES AND TISSUE. Modifiers: right . 01 Clinical history: . OSTEOARTHRITIS OF WILL. KNEE . 02 Diagnosis: Segments of bone and soft tissue, right total knee replacement: - Advanced degenerative arthritis, with focal subarticular fibrosis and cystic degeneration. (JPM:cecy; 09/30/2021) QMS 09/30/2021 1737 Local . 02 Electronically signed: . Kwabena Yuen MD, Pathologist NPI- [id number] . 01 Gross description: . The specimen is received in formalin, labeled "Juanito Cummings Jr, right patella bone and tissue". Received are multiple segments of bone, including the tibial plateau, measuring 13.0 x 11.7 x 1.2 cm admixed with soft tissue in aggregate dimensions. Meniscus is not present. The articular surfaces are pale white-yellow to dark white-red, smooth to roughened, and with signs of eburnation. Sectioning reveals light white-yellow to light pink cut and solid surfaces with a possible poorly defined, pale white to dark white lesion measuring 0.8 x 0.7 x 0.5 cm. The specimen is submitted representatively in cassette A1 to A2, following decalcification.([facility]; 09/28/2021) [facility] 09/30/2021 0926 Local . 02 Pathologist provided ICD-10: M17.11 . 02 CPT . 843725, [id number] Specimen Comment: A courtesy copy of this report has been sent to [phone], [phone] Specimen Comment: [id number] Specimen Comment: Report sent to / DR APPL Specimen Comment: A duplicate report has been generated due to demographic updates. Performed at: 01 [facility] [address] [facility] [address], [place] [id number] MD Sharath Rodriguez MD Phone: [phone] Performed at: 02 [facility] [address] [place], [place] [id number] MD Kwabena Yuen MD Phone: [phone]
== END 2021-09-30 11:30 ==
LOC: SURG 05:50 → INTOOBSV 07:34 → OBSVTOIN 07:34 → 4 NORTH 07:34
PROVIDERS: ADMIT Orthopaedic Surgery Sports Medicine; ATTEND Orthopaedic Surgery Sports Medicine
DX: M17.11 Unilateral primary osteoarthritis, right knee (principal); Z20.822 Contact with and (suspected) exposure to COVID-19; I10 Essential (primary) hypertension; I48.91 Unspecified atrial fibrillation; D64.9 Anemia, unspecified; Z79.01 Long term (current) use of anticoagulants; Z79.899 Other long term (current) drug therapy; Z98.890 Other specified postprocedural states
CPT/HCPCS: 27447; 36415; 73560; 85014; 85018; 85610; 86850; 86900; 86901; 96365; 96366; 96375; 97110; 97116; 97162; 97166; 97530; 97535; A4213; A4930; A6253; A6402; A6450; C1713; C1776; G0378; G0379; J0171; J0330; J0690; J0780; J1100; J1170; J1885; J2060; J2270; J2370; J2405; J2704; J2795; J3010; J3490; J7030; Q0163